=== PATIENT | male | born 1935 | race Caucasian/White ===

== ENCOUNTER → 2017-12-14 | Outpatient (CLI) | payer MEDICARE ==
--- NOTE | 2017-12-14 15:46 | XR ---
EXAMINATION TYPE: XR foot complete LT DATE OF EXAM: 12/14/2017 COMPARISON: NONE HISTORY: Pain TECHNIQUE: Three views are submitted. FINDINGS: The osseous structures are intact. There is no acute fracture or dislocation. Joint spaces are p reserved. Atherosclerotic change of the vasculature. Diffuse soft tissue edema. No destructive change s. Arthropathy of the first MTP and DIP joint surgical clips overlying the distal tibia on the latera l view. IMPRESSION: 1. Diffuse soft tissue edema.
== END | disposition home or self-care (01) ==
LOC: RADXRYALE 15:09
PROVIDERS: ATTEND Family Medicine
DX: R60.0 Localized edema (principal)

== ENCOUNTER → 2019-02-03 | Outpatient (CLI) | payer MEDICARE ==
--- NOTE | 2019-02-08 09:42 | P.ARTDOP ---
Arterial Doppler LOWER EXTREMITY ARTERIAL DOPPLER: DATE OF SERVICE: 02/03/2019 Reason for study: Status post bypass. Doppler waveforms: Multiphasic bilaterally throughout. Pulse volume recording: []. Pressure gradients: None. Ankle-brachial indices: Greater than 1 bilaterally. Toe pressures: [] on the right, [] on the left Impression: Normal study.
== END | disposition home or self-care (01) ==
LOC: RADUSWWP 09:33
PROVIDERS: ATTEND Family Medicine
DX: R60.0 Localized edema (principal); M25.572 Pain in left ankle and joints of left foot; I70.8 Atherosclerosis of other arteries
CPT/HCPCS: 93922

== ENCOUNTER 2019-02-27 11:09 | Inpatient (IN) | payer MEDICARE ==
[2019-02-27] MEDS ORDERED: ONDANSETRON 4 MG/2 ML VIAL IVP STA (11:33)
--- NOTE | 2019-02-27 11:33 | ED ---
General Adult HPI - General Chief complaint: Upper Respiratory Infection Stated complaint: cough Time Seen by Provider: 02/27/19 11:17 Source: patient, RN notes reviewed Mode of arrival: EMS Limitations: no limitations - History of Present Illness Initial comments: patient is a pleasant 83-year-old male presenting to the emergency Department with complaints of cough. Symptoms have been occurring for the past few days. 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 Patient states cough is occasionally somewhat productive. Patient does feel slightly short of breath. No chest pain. Patient has been more fatigued, no isolated area of weakness. No confusion. No leg pain or leg swelling. No fevers. - Related Data Home Medications Medication Instructions Recorded Confirmed Aspirin 81 mg PO DAILY 03/07/15 02/27/19 Atenolol 25 mg PO DAILY 03/07/15 02/27/19 Simvastatin [Zocor] 20 mg PO HS 03/07/15 02/27/19 Ascorbic Acid [Vitamin C] 500 mg PO DAILY 02/27/19 02/27/19 Niacin 500 mg PO DAILY 02/27/19 02/27/19 [place]-3 Fatty Acids/Fish Oil [Fish 1 cap PO DAILY 02/27/19 02/27/19 Oil 1,000 mg Softgel] Allergies Allergy/AdvReac Type Severity Reaction Status Date / Time No Known Allergies Allergy Verified 02/27/19 12:05 Review of Systems ROS Statement: Those systems with pertinent positive or pertinent negative responses have been documented in the HPI. ROS Other: All systems not noted in ROS Statement are negative. Constitutional: Denies: fever, chills Eyes: Denies: eye pain ENT: Denies: ear pain Respiratory: Reports: as per HPI, cough Cardiovascular: Denies: chest pain, palpitations Endocrine: Denies: fatigue Gastrointestinal: Denies: nausea, vomiting Genitourinary: Denies: dysuria Musculoskeletal: Denies: back pain Skin: Denies: rash Neurological: Denies: weakness Past Medical History Past Medical History: Coronary Artery Disease (CAD), Hyperlipidemia, Hypertension History of Any Multi-Drug Resistant Organisms: None Reported Past Surgical History: Cholecystectomy, Coronary Bypass/CABG Past Psychological History: No Psychological Hx Reported Smoking Status: Never smoker Past Alcohol Use History: None Reported Past Drug Use History: None Reported General Exam Limitations: no limitations General appearance: alert, in no apparent distress Head exam: Present: normocephalic Eye exam: Present: normal appearance, PERRL ENT exam: Present: normal oropharynx Neck exam: Present: normal inspection Respiratory exam: Present: normal lung sounds bilaterally. Absent: respiratory distress, wheezes, rales, rhonchi, decreased breath sounds Cardiovascular Exam: Present: regular rate, normal rhythm GI/Abdominal exam: Present: soft. Absent: distended, tenderness, guarding, rebound, rigid Extremities exam: Present: normal inspection. Absent: pedal edema, calf tenderness Neurological exam: Present: alert Psychiatric exam: Present: normal affect, normal mood Skin exam: Present: normal color Course Vital Signs 02/27/19 02/27/19 02/27/19 11:21 11:30 12:15 Temperature 98.4 F 98.0 F Pulse Rate 82 67 Respiratory 20 18 Rate Blood Pressure 147/96 140/79 O2 Sat by Pulse 91 L 91 L Oximetry 02/27/19 02/27/19 13:00 13:40 Temperature 98.6 F Pulse Rate 63 87 Respiratory 18 23 Rate Blood Pressure 116/65 111/75 O2 Sat by Pulse 98 90 L Oximetry EKG Findings - EKG Comments: EKG Findings:: Normal sinus rhythm at 68. NM 198. QRS 98. QT 400. QTc 425. Left axis. Incomplete right bundle-branch block. Inferior Q waves. No acute ST change. Medical Decision Making - Medical Decision Making patient reevaluated and updated.Patient feeling well lying in bed however family states patient has been very fatigued and had difficulty walking. Patient is able to get up and walk around the emergency department however afterwards is very fatigued and felt short of breath. Case was discussed in detail with Dr. Woodward who will admit. He does recommend azithromycin for possible clinical pneumonia. - Lab Data Result diagrams: 02/27/19 11:25 02/27/19 11:25 Lab Results 02/27/19 02/27/19 02/27/19 Range/Units 11:25 11:25 11:25 WBC 8.4 (3.8-10.6) k/uL RBC 5.13 (4.30-5.90) m/uL Hgb 15.9 (13.0-17.5) gm/dL Hct 47.9 (39.0-53.0) % MCV 93.5 (80.0-100.0) fL MCH 31.1 (25.0-35.0) pg MCHC 33.2 (31.0-37.0) g/dL RDW 12.8 (11.5-15.5) % Plt Count 226 (150-450) k/uL Neutrophils % 75 % Lymphocytes % 16 % Monocytes % 6 % Eosinophils % 0 % Basophils % 0 % Neutrophils # 6.3 (1.3-7.7) k/uL Lymphocytes # 1.3 (1.0-4.8) k/uL Monocytes # 0.5 (0-1.0) k/uL Eosinophils # 0.0 (0-0.7) k/uL Basophils # 0.0 (0-0.2) k/uL PT (9.0-12.0) sec INR (<1.2) APTT (22.0-30.0) sec D-Dimer (<0.60) mg/L FEU Sodium 140 (137-145) mmol/L Potassium 4.5 (3.5-5.1) mmol/L Chloride 107 (98-107) mmol/L Carbon Dioxide 23 (22-30) mmol/L Anion Gap 10 mmol/L BUN 10 (9-20) mg/dL Creatinine 0.90 (0.66-1.25) mg/dL Est GFR (CKD-EPI)AfAm >90 (>60 ml/min/1.73 sqM) Est GFR (CKD-EPI)NonAf 79 (>60 ml/min/1.73 sqM) Glucose 128 H (74-99) mg/dL Calcium 10.0 (8.4-10.2) mg/dL Total Bilirubin 1.8 H (0.2-1.3) mg/dL AST 37 (17-59) U/L ALT 28 (4-49) U/L Alkaline Phosphatase 89 (38-126) U/L Creatine Kinase 32 L (55-170) U/L Troponin I (0.000-0.034) ng/mL NT-Pro-B Natriuret Pep 59 pg/mL Total Protein 7.4 (6.3-8.2) g/dL Albumin 4.4 (3.5-5.0) g/dL 02/27/19 02/27/19 Range/Units 11:25 11:25 WBC (3.8-10.6) k/uL RBC (4.30-5.90) m/uL Hgb (13.0-17.5) gm/dL Hct (39.0-53.0) % MCV (80.0-100.0) fL MCH (25.0-35.0) pg MCHC (31.0-37.0) g/dL RDW (11.5-15.5) % Plt Count (150-450) k/uL Neutrophils % % Lymphocytes % % Monocytes % % Eosinophils % % Basophils % % Neutrophils # (1.3-7.7) k/uL Lymphocytes # (1.0-4.8) k/uL Monocytes # (0-1.0) k/uL Eosinophils # (0-0.7) k/uL Basophils # (0-0.2) k/uL PT 10.2 (9.0-12.0) sec INR 0.9 (<1.2) APTT 22.9 (22.0-30.0) sec D-Dimer 0.43 (<0.60) mg/L FEU Sodium (137-145) mmol/L Potassium (3.5-5.1) mmol/L Chloride (98-107) mmol/L Carbon Dioxide (22-30) mmol/L Anion Gap mmol/L BUN (9-20) mg/dL Creatinine (0.66-1.25) mg/dL Est GFR (CKD-EPI)AfAm (>60 ml/min/1.73 sqM) Est GFR (CKD-EPI)NonAf (>60 ml/min/1.73 sqM) Glucose (74-99) mg/dL Calcium (8.4-10.2) mg/dL Total Bilirubin (0.2-1.3) mg/dL AST (17-59) U/L ALT (4-49) U/L Alkaline Phosphatase (38-126) U/L Creatine Kinase (55-170) U/L Troponin I <0.012 (0.000-0.034) ng/mL NT-Pro-B Natriuret Pep pg/mL Total Protein (6.3-8.2) g/dL Albumin (3.5-5.0) g/dL - Radiology Data Radiology results: image reviewed (Chest x-ray shows some pulmonary venous en gorgement without failure. Abdominal x-ray shows no acute process) Disposition Clinical Impression: Dyspnea Disposition: ADMITTED IP TO THIS HOSP Is patient prescribed a controlled substance at d/c from ED?: No Referrals: [facility],Clinic [REFERRING] - 1-2 days Decision Time: 14:17
--- NOTE | 2019-02-27 12:09 | XR ---
EXAMINATION TYPE: XR chest 2V DATE OF EXAM: 02/27/2019 COMPARISON: NONE HISTORY: Shortness of breath TECHNIQUE: Frontal and lateral views of the chest are obtained. FINDINGS: Scattered senescent parenchymal changes noted. Hyperinflation compatible with COPD. No evidence for infiltrate. No evidence for atelectasis. Small fixed hiatal hernia noted. Heart size is stable. Pulmonary venous engorgement without overt failure. Mediastinal structures are stable and grossly unremarkable. No evidence for hilar prominence. Degenerative changes dorsal spine. IMPRESSION: 1. Pulmonary venous engorgement without overt failure.
[2019-02-27 12:11] LABS: Basophils % (A) 0 %; Eosinophils % (A) 0 %; HCT 47.9 % (39.0-53.0); HGB 15.9 gm/dL (13.0-17.5); Lymphocytes # (A) 1.3 k/uL (1.0-4.8); Lymphocytes % (A) 16 %; MCH 31.1 pg (25.0-35.0); MCHC 33.2 g/dL (31.0-37.0); MCV 93.5 fL (80.0-100.0); Mean Platelet Volume 7.2; Monocytes # (A) 0.5 k/uL (0-1.0); Monocytes % (A) 6 %; Neutrophils # (A) 6.3 k/uL (1.3-7.7); Neutrophils % (A) 75 %; Platelet Count 226 k/uL (150-450); RBC 5.13 m/uL (4.30-5.90); RDW 12.8 % (11.5-15.5); WBC 8.4 k/uL (3.8-10.6)
--- NOTE | 2019-02-27 12:12 | XR ---
EXAMINATION TYPE: XR abdomen 1V DATE OF EXAM: 02/27/2019 12:00 PM CLINICAL HISTORY: Nausea TECHNIQUE: Single supine KUB image of the abdomen is obtained. COMPARISON: None. FINDINGS: No dilated large or small bowel. Small vessel small vessel atherosclerosis is seen in the l eft hemipelvis. Cholecystectomy clips are noted. Presumed overlying leads in the right abdomen. No adams spicious calcifications in the abdomen or pelvis. Lung bases are grossly well aerated. IMPRESSION: Nonobstructive bowel gas pattern.
[2019-02-27 12:15] LABS: ALT 28 U/L (4-49); AST 37 U/L (17-59); African American GFR (CKD) >90 (>60 ml/min/1.73 sqM); Albumin 4.4 g/dL (3.5-5.0); Alkaline Phosphatase 89 U/L (38-126); Anion Gap 10 mmol/L; Blood Urea Nitrogen 10 mg/dL (9-20); Carbon Dioxide 23 mmol/L (22-30); Chloride 107 mmol/L (98-107); Creatine Kinase 32 U/L (55-170); Glucose 128 mg/dL (74-99); Non-African American GFR(CKD) 79 (>60 ml/min/1.73 sqM); Potassium 4.5 mmol/L (3.5-5.1); Sodium 140 mmol/L (137-145); Total Bilirubin 1.8 mg/dL (0.2-1.3); Total Protein 7.4 g/dL (6.3-8.2)
[2019-02-27 12:20] LABS: D-Dimer 0.43 mg/L FEU (<0.60); INR 0.9 (<1.2); Partial Thromboplastin Time 22.9 sec (22.0-30.0); Prothrombin Time 10.2 sec (9.0-12.0)
[2019-02-27] MEDS ORDERED: AZITHROMYCIN 500 MG in SODIUM CHLORIDE 0.9% 250 ML IVPB STA (14:17)
[2019-02-27] MEDS ORDERED: PNEUMONIA PROTOCOL UTILIZED 1 EACH MISC PO PRN (14:17)
[2019-02-27] MEDS ORDERED: IPRATROPIUM-ALBUTEROL 3 ML NEB INHALATION PRN (14:17)
[2019-02-27] MEDS: SODIUM CHLORIDE 0.9% 1,000 ML IV SCH (15:06)
[2019-02-27] MEDS: IPRATROPIUM-ALBUTEROL 3 ML NEB INHALATION SCH ×2 (16:02→19:39)
[2019-02-27] MEDS ORDERED: ACETAMINOPHEN TAB 500 MG TAB PO PRN (18:42)
[2019-02-27] MEDS ORDERED: ALPRAZolam 0.25 MG TAB PO PRN (18:42)
[2019-02-27] MEDS ORDERED: HYDROcodone/APAP 5-325MG 1 EACH TAB PO PRN (18:42)
[2019-02-27] MEDS ORDERED: methylPREDNISolone SOD SUCCI 125 MG/2 ML VIAL IV SCH (18:45)
[2019-02-27] MEDS: PANTOPRAZOLE 40 MG/10 ML VIAL IVP SCH (20:42)
[2019-02-27] MEDS: ATORVASTATIN 10 MG TAB PO SCH (20:42)
[2019-02-27] MEDS: HEPARIN SODIUM,PORCINE 5,000 UNIT/ML 1 ML VIAL SQ SCH (20:42)
--- NOTE | 2019-02-27 21:35 | HP ---
HISTORY AND PHYSICAL DATE OF SERVICE: 02/27/2019. CHIEF COMPLAINT: Shortness of breath, cough and as well as nausea, feeling sick. HISTORY OF PRESENT ILLNESS: This 83-year-old gentleman with a past medical history of multiple medical problems including CAD history, hypertension, hyperlipidemia, myocardial infarction, history of dean's lung, history of DJD, history of CAD/CABG being followed by Dr. Espinoza in the [facility] in the outpatient setting was not feeling well over the past several days. Patient complains of cough. The patient was getting mucopurulent sputum. The patient also had some nausea, unable to eat and patient also had some shortness of breath. The patient came to [facility] with the above-mentioned complaints, admitted for further evaluation and treatment. Initial evaluation showed normal CBC and the bilirubin elevated 1.8. The flu is negative. The patient appears to be extremely sick at this time. D-dimer is also negative. A chest x-ray was done which I reviewed personally showed some increased bronchovascular markings might indicate early pneumonia. Patient admitted for further evaluation and treatment. NT pro BNP is only 59. There is no history of any fever, rigors, or chills. No history of headache, loss of consciousness, seizures. PAST MEDICAL HISTORY: History of CAD, hypertension, hyperlipidemia, myocardial infarction, history of CAD/CABG. MEDICATIONS: Home medications are: 1. [place]-3 fatty acids 1 p.o. daily. 2. Niacin 500 mg p.o. daily. 3. Vitamin C 500 mg p.o. daily. 4. Zocor 20 mg q.h.s. 5. Atenolol 25 mg daily. 6. Aspirin 81 mg daily. ALLERGIES: None. FAMILY HISTORY: History of dementia. Father committed suicide. SOCIAL HISTORY: No history of smoking. No history of alcohol intake. REVIEW OF SYSTEMS: ENT diminished vision. Diminished hearing. CARDIOVASCULAR: No angina or palpitations. RESPIRATION: As mentioned earlier. GASTROINTESTINAL: As mentioned earlier. no dysuria. NERVOUS SYSTEM: No numbness. No focal weakness. ALLERGY/IMMUNOLOGY no asthma or hayfever. MUSCULOSKELETAL as mentioned earlier. HEMATOLOGY/ONCOLOGY: No history of anemia. ENDOCRINE: No history of diabetes or hypothyroidism. CONSTITUTIONAL: As mentioned earlier. DERMATOLOGY: Negative. RHEUMATOLOGY negative. PSYCHIATRY as mentioned earlier. PHYSICAL EXAMINATION: Alert and oriented x3. Pulse 72. Blood pressure 150/76, respiration 18, temperature 97.7, pulse ox 93 percent on room air. HEENT: Conjunctivae normal. Oral mucosa moist. NECK is no jugular venous distention. No carotid bruit. No lymph node enlargement. CARDIOVASCULAR system: S1, S2 muffled. No S3, no S4. RESPIRATORY: Breath sounds diminished in the bases. A few scattered rhonchi and basal crackles also heard. Expiratory wheezing also heard. ABDOMEN: Soft, nontender. No mass palpable. LEGS: No edema. No swelling. NERVOUS SYSTEM: Higher functions as mentioned earlier. Moves all 4 limbs. No focal motor or sensory deficits. LYMPHATICS: No lymph nodes palpable in the neck, axillae or groin. JOINTS: No active deforming arthropathy. LABS: CBC within normal limits. Glucose 128, total bilirubin is 1.8. ASSESSMENT: 1. Possible bibasilar pneumonia or bronchopneumonia with early sepsis. 2. History of coronary artery disease, coronary artery bypass grafting. 3. Possible acute gastritis. 4. Hypertension. 5. Hyperlipidemia. 6. Myocardial infarction. 7. History of dean's lung. 8. History of cardiac catheterization. 9. NO CODE, NO CPR AND NO VENT. RECOMMENDATIONS AND DISCUSSION: In this 83-year-old gentleman with a past medical history of multiple medical problems, was admitted with significant respiratory illness and feeling sick at this time. Chest x-ray showed some opacities. I would recommend the patient be treated on broad- spectrum IV antibiotics with presumptive diagnosis of pneumonia. We will obtain the cultures. Otherwise, I would also recommend bronchodilators at this time and resume the home medications. Other than that, the blood cultures also will be obtained. The patient possibly has early signs of sepsis because of the extent of the patient's sickness even though the lab values please note reflect the seriousness of the disease. Discussed with the patient who understands and agrees. Further recommendations to follow. A copy of this dictation being forwarded to Dr. Espinoza who is the primary physician. See orders for details. Medication reconciliation has been done. MMODL / JOSE ELIASN: [id number] /
[2019-02-28 05:30] LABS: Appearance,Urine Clear (Clear); Bilirubin,Urine Negative (Negative); Blood,Urine Negative (Negative); Color,Urine Yellow; Glucose,Urine (UA) Negative (Negative); Ketones,Urine Trace (Negative); Leukocyte Esterase,Urine Negative (Negative); Nitrite,Urine Negative (Negative); PH, Urine 5.5 (5.0-8.0); Protein,Urine Negative (Negative); Specific Gravity,Urine 1.016 (1.001-1.035); Urobilinogen,Urine <2.0 mg/dL (<2.0)
[2019-02-28] MEDS: IPRATROPIUM-ALBUTEROL 3 ML NEB INHALATION SCH ×4 (07:29→19:09)
[2019-02-28 08:34] LABS: Basophils % (A) 0 %; Eosinophils # (A) 0.1 k/uL (0-0.7); Eosinophils % (A) 1 %; HCT 45.6 % (39.0-53.0); HGB 15.3 gm/dL (13.0-17.5); Lymphocytes % (A) 25 %; MCH 31.8 pg (25.0-35.0); MCHC 33.5 g/dL (31.0-37.0); MCV 95.2 fL (80.0-100.0); Monocytes # (A) 0.5 k/uL (0-1.0); Monocytes % (A) 6 %; Neutrophils # (A) 5.2 k/uL (1.3-7.7); Neutrophils % (A) 65 %; Platelet Count 234 k/uL (150-450); RDW 12.9 % (11.5-15.5)
[2019-02-28] MEDS: HEPARIN SODIUM,PORCINE 5,000 UNIT/ML 1 ML VIAL SQ SCH ×2 (08:34→22:14)
[2019-02-28] MEDS: ASPIRIN 81 MG PO SCH (08:36)
[2019-02-28] MEDS: AZITHROMYCIN 500 MG TAB PO SCH (08:36)
[2019-02-28] MEDS: ASCORBIC ACID 500 MG TAB PO SCH (08:36)
[2019-02-28] MEDS: ATENOLOL 25 MG TAB PO SCH (08:36)
[2019-02-28] MEDS: PANTOPRAZOLE 40 MG/10 ML VIAL IVP SCH (08:36)
[2019-02-28] MEDS: NIACIN TR 500 MG CAPLET PO SCH (08:37)
--- NOTE | 2019-02-28 08:41 | XR ---
EXAMINATION TYPE: XR chest 2V DATE OF EXAM: 02/28/2019 COMPARISON: 02/27/2019 HISTORY: Pneumonia. Follow-up exam. TECHNIQUE: Frontal and lateral views of the chest are obtained. FINDINGS: There is an improved retrocardiac opacity with air bronchograms. This appears faint on tod ay's exam. Remainder the lungs are well aerated with chronic interstitial prominence. Cardia mediasti nal silhouette is stable with post CABG change. Diffuse osseous demineralization is noted. IMPRESSION: Improved left basilar retrocardiac opacity.
[2019-02-28 08:49] LABS: Calcium 9.9 mg/dL (8.4-10.2); Potassium 4.2 mmol/L (3.5-5.1)
[2019-02-28] MEDS ORDERED: NON FORMULARY DRUG (Omega-3 Fatty Acids/Fish Oil [Fish Oil 1,000 Mg Softgel] 1 CAP) PO SCH (09:00)
--- NOTE | 2019-02-28 10:04 | P.CNPUL ---
History of Present Illness Consult date: 02/28/19 Reason for consult: dyspnea History of present illness: 3-year-old male patient with known history of Selby's lung, coronary artery disease and bypass was done more than 10 years ago, a nonsmoker, who started developing a respiratory illness approximately 3 days ago where he was having increased cough and congestion and he was having some chills. No documented fever. He came into the hospital where he was diagnosed having a retrocardiac p ulmonary infiltrates/pneumonia and he was started on antibiotics. He is already feeling better. Less short of breath. He is on room air oxygen. No hemoptysis. No pleurisy. No swelling lower extremities. No altered mentation. The influenza screen was negative. White cell count is nonelevated. Rest of the blood work is all within normal limits. Total bilirubin was 1.8. The rest of the LFTs were all within normal limits. He was started on a combination of Rocephin and Zithromax. Review of Systems Constitutional: Reports chills Eyes: denies as per HPI, denies blurred vision, denies bulging eye, denies decreased vision, denies diplopia, denies discharge, denies dry eye, denies irritation, denies itching, denies pain, denies photophobia, denies loss of peripheral vision, denies loss of vision, denies tunnel vision/blind spots Ears: bilateral: decreased hearing, deny: ear discharge, earache, tinnitus Ears, nose, mouth and throat: Reports as per HPI Respiratory: Reports cough, Reports dyspnea, Reports excessive sputum Gastrointestinal: Reports as per HPI Genitourinary: Reports as per HPI Musculoskeletal: Reports as per HPI Musculoskeletal: absent: ankle pain, ankle stiffness, ankle swelling Integumentary: Reports as per HPI Neurological: Reports as per HPI Psychiatric: Reports anxiety attacks Endocrine: Reports as per HPI Hematologic/Lymphatic: Reports as per HPI Allergic/Immunologic: Reports as per HPI Past Medical History Past Medical History: Coronary Artery Disease (CAD), Hyperlipidemia, Hypertension, Myocardial Infarction (AR) Additional Past Medical History / Comment(s): "Selby's lung", coronary artery disease with previous bypass surgery, head injury one year ago and still gets occasional headaches, low back pain/R hip pain/limited ROM, L knee injury and it will buckle so pt wears a knee brace, recent bilateral pedal edema-pt had recent ultrasound but has not gotten the results plus edema went away, Last Myocardial Infarction Date:: 2001 History of Any Multi-Drug Resistant Organisms: None Reported Past Surgical History: Cholecystectomy, Coronary Bypass/CABG, Heart Catheterization Additional Past Surgical History / Comment(s): 2001 CABG 4 vessel, R leg/foot clips removed, lumbar epidural injections, LP Additional Past Anesthesia/Blood Transfusion Reaction / Comment(s): Pt gets "loopy" with anesthesia and has had longer hospital stays d/t this. Smoking Status: Never smoker - Past Family History Father History Unknown: Yes Additional Family Medical History / Comment(s): Father commited suicide. Mother Family Medical History: Dementia Medications and Allergies Home Medications Medication Instructions Recorded Confirmed Type Aspirin 81 mg PO DAILY 03/07/15 02/27/19 History Atenolol 25 mg PO DAILY 03/07/15 02/27/19 History Simvastatin [Zocor] 20 mg PO HS 03/07/15 02/27/19 History Ascorbic Acid [Vitamin C] 500 mg PO DAILY 02/27/19 02/27/19 History Niacin 500 mg PO DAILY 02/27/19 02/27/19 History [place]-3 Fatty Acids/Fish Oil [Fish 1 cap PO DAILY 02/27/19 02/27/19 History Oil 1,000 mg Softgel] Allergies Allergy/AdvReac Type Severity Reaction Status Date / Time No Known Allergies Allergy Verified 02/27/19 12:05 Physical Exam Vitals: Vital Signs Temp Pulse Pulse Resp BP BP BP 02/28/19 07:40 84 02/28/19 07:31 80 02/28/19 06:25 65 105/57 110/65 02/28/19 05:36 97.8 F 64 17 87/49 02/27/19 21:58 97.9 F 109 H 17 101/59 02/27/19 19:49 82 02/27/19 19:39 84 02/27/19 16:14 80 02/27/19 16:02 82 02/27/19 15:23 97.9 F 72 18 150/77 02/27/19 15:12 98.2 F 73 15 126/74 02/27/19 15:00 98.2 F 73 18 126/74 02/27/19 14:00 98.2 F 63 19 124/74 02/27/19 13:40 87 23 111/75 02/27/19 13:00 98.6 F 63 18 116/65 02/27/19 12:15 98.0 F 67 140/79 02/27/19 11:30 18 02/27/19 11:21 98.4 F 82 20 147/96 Pulse Ox 02/28/19 07:40 02/28/19 07:31 02/28/19 06:25 02/28/19 05:36 92 L 02/27/19 21:58 92 L 02/27/19 19:49 02/27/19 19:39 02/27/19 16:14 02/27/19 16:02 95 02/27/19 15:23 93 L 02/27/19 15:12 02/27/19 15:00 94 L 02/27/19 14:00 93 L 02/27/19 13:40 90 L 02/27/19 13:00 98 02/27/19 12:15 91 L 02/27/19 11:30 02/27/19 11:21 91 L Intake and Output 02/27/19 02/28/19 02/28/19 22:59 06:59 14:59 Intake Total 100 Output Total 400 400 Balance -300 -400 Intake: Amount of Fluid Infused ( 100 ml) Output: Urine 400 400 Other: Voiding Method Toilet Toilet Weight 81.647 kg he patient appeared well nourished and normally developed. Vital signs as documented. Head exam is unremarkable. No scleral icterus or corneal arcus noted. Neck is without jugular venous distension, thyromegaly, or carotid bruits. Carotid upstrokes are brisk bilaterally. Lungs are clear to auscultation and percussion, few crackles in lung bases bilaterally and the patient has a t horacotomy scar over the anterior chest which is dry clean and intact.. Cardiac exam reveals the PMI to be normally sized and situated. Rhythm is regular. First and second heart sounds normal. No murmurs, rubs or gallops. Abdominal exam reveals normal bowel sounds, no masses, no organomegaly and no aortic enlargement. Extremities are nonedematous and both femoral and pedal pulses are normal. Results - Laboratory Findings CBC and BMP: 02/28/19 07:53 02/28/19 07:53 PT/INR, D-dimer PT 10.2 sec (9.0-12.0) 02/27/19 11:25 INR 0.9 (<1.2) 02/27/19 11:25 D-Dimer 0.43 mg/L FEU (<0.60) 02/27/19 11:25 Abnormal lab findings: Abnormal Labs 02/27/19 02/28/19 02/28/19 11:25 05:18 07:53 Glucose 128 H 107 H Total Bilirubin 1.8 H Creatine Kinase 32 L Urine Ketones Trace H - Diagnostic Findings Chest x-ray: image reviewed Assessment and Plan Plan: 1 left lower lobe pneumonia, retrocardiac, currently on examination of Rocephin and Zithromax. This is a community acquired pneumonia. Hemodynamically stable. No significant hypoxemia. No altered mentation. Blood work is within normal limits 2 Selby's lung/fibrosis involving the lung bases 3 coronary artery disease with previous bypass surgery that was done more than 10 years ago 4 hyperlipidemia Plan Agree on the current antibiotic coverage. Switch this patient oral antibiotics in the next 24 hours. Chest x-rays improved. No signs of any respiratory insufficiency at this point in time. Cultures are pending. The blood work is within normal limits. Simple community-acquired pneumonia and the patient should be able to get discharged the next 24 hours.
[2019-02-28] MEDS: SODIUM CHLORIDE 0.9% 1,000 ML IV SCH (15:13)
--- NOTE | 2019-02-28 16:46 | PN ---
PROGRESS NOTE DATE OF SERVICE: 02/28/2019 This 83-year-old gentleman admitted with cough, congestion, shortness of breath as well as some chills had possibly bibasilar pneumonia, left more than the right, with possibly community-acquired pneumonia with early sepsis. The patient was extremely sick yesterday. The patient was given antibiotics. At present the white count is normal, but the patient clinically has features of early sepsis. Please note the clinical findings rather than the lab findings. Past medical history reviewed. REVIEW OF SYSTEMS: CARDIOVASCULAR SYSTEM: No angina, palpitations. RESPIRATORY SYSTEM: As mentioned earlier. GI: As mentioned earlier. : No dysuria or retention. NERVOUS SYSTEM: No numbness, weakness. CURRENT MEDICATIONS: 1. Tylenol p.r.n. 2. [place] 5 mg q.6 p.r.n. 3. DuoNeb q.i.d. and p.r.n. 4. Xanax 0.25 t.i.d. 5. Vitamin C 500 mg p.o. daily. 6. Aspirin 81 mg p.o. daily. 7. Tenormin 25 mg daily. 8. Lipitor 10 mg at bedtime. 9. Zithromax 500 mg p.o. daily. 10.Omnicef 300 mg p.o. b.i.d. 11.Heparin 5000 units subcutaneously b.i.d. 12.Niacin 500 mg p.o. daily. 13.Protonix 40 mg b.i.d. PHYSICAL EXAMINATION: Patient is alert, oriented x3. Pulse is 77, blood pressure 113/73, respirations 16, temperature 98 degrees, pulse ox 91% on room air. HEENT: Conjunctivae normal. Oral mucosa moist. NECK: No jugular venous distention. No carotid bruit. No lymph node enlargement. CARDIOVASCULAR SYSTEM: S1, S2 muffled. RESPIRATORY SYSTEM: Breath sounds diminished at the bases. Some mild increase in activity. Otherwise, bilateral scattered rhonchi and basal crackles, left more than the right, are present. ABDOMEN: Soft, nontender. LEGS: No edema. No swelling. NERVOUS SYSTEM: Higher functions as mentioned earlier. Moves all 4 limbs. No focal motor or sensory deficit. LYMPHATICS: No lymph node palpable in neck, axillae or groin. SKIN: No ulcer, rash, bleeding. JOINTS: No active deforming arthropathy. LABS: CBC normal. Sodium 143, potassium 4.2. Other labs are noted. ASSESSMENT: 1. Acute bibasilar pneumonia, possibly community-acquired, left more than the right, with early sepsis, present on admission. 2. 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 3. History of coronary artery disease, coronary artery bypass grafting. 4. Possible acute gastritis, present on admission, secondary to sepsis. 5. Hypertension. 6. Hyperlipidemia. 7. Myocardial infarction and history of cardiac catheterization. 8. NO CODE, NO CPR, NO VENT. RECOMMENDATIONS AND DISCUSSION: In this 83-year-old gentleman admitted with multiple complex medical issues, I would recommend to continue the IV antibiotics. As mentioned earlier, the patient was extremely sick yesterday, feeling miserable, having vomiting as well as fever, chills and significant respiratory symptoms. Patient had features of possibly severe pneumonia with features of sepsis, present on admission. I would recommend to continue the antibiotics. The lab values are not reflective of the seriousness and the severity of the patient's illness. I will definitely continue IV antibiotics and close monitoring in the hospital. Further recommendations to follow. MMODL / IJN: [id number] /
[2019-02-28] MEDS: PANTOPRAZOLE 40 MG TABLET PO SCH (16:48)
[2019-02-28] MEDS: ATORVASTATIN 10 MG TAB PO SCH (22:14)
[2019-03-01] MEDS: IPRATROPIUM-ALBUTEROL 3 ML NEB INHALATION SCH ×2 (07:00→10:38)
[2019-03-01] MEDS: PANTOPRAZOLE 40 MG TABLET PO SCH (08:56)
[2019-03-01] MEDS: AZITHROMYCIN 500 MG TAB PO SCH (08:56)
[2019-03-01] MEDS: HEPARIN SODIUM,PORCINE 5,000 UNIT/ML 1 ML VIAL SQ SCH (08:57)
[2019-03-01] MEDS: ATENOLOL 25 MG TAB PO SCH (08:57)
[2019-03-01] MEDS: ASPIRIN 81 MG PO SCH (08:57)
[2019-03-01] MEDS: ASCORBIC ACID 500 MG TAB PO SCH (08:57)
[2019-03-01] MEDS: NIACIN TR 500 MG CAPLET PO SCH (08:58)
[2019-03-01] MEDS ORDERED: CEFDINIR 300 MG CAP PO SCH (09:00)
[2019-03-01 10:01] LABS: Basophils % (A) 1 %; Eosinophils # (A) 0.1 k/uL (0-0.7); Eosinophils % (A) 1 %; HCT 46.2 % (39.0-53.0); HGB 14.7 gm/dL (13.0-17.5); Lymphocytes % (A) 14 %; MCH 30.7 pg (25.0-35.0); MCHC 31.9 g/dL (31.0-37.0); MCV 96.3 fL (80.0-100.0); Mean Platelet Volume 7.3; Monocytes # (A) 0.3 k/uL (0-1.0); Monocytes % (A) 5 %; Neutrophils # (A) 5.3 k/uL (1.3-7.7); Neutrophils % (A) 78 %; Platelet Count 216 k/uL (150-450); RBC 4.79 m/uL (4.30-5.90); RDW 13.2 % (11.5-15.5); WBC 6.8 k/uL (3.8-10.6)
[2019-03-01 10:13] LABS: Calcium 9.8 mg/dL (8.4-10.2); Potassium 4.4 mmol/L (3.5-5.1)
--- NOTE | 2019-03-01 10:35 | P.PN ---
Subjective Progress Note Date: 03/01/19 83-year-old male patient with known history of Selby's lung, coronary artery disease and bypass was done more than 10 years ago, a nonsmoker, who started developing a respiratory illness approximately 3 days ago where he was having increased cough and congestion and he was having some chills. No documented fever. He came into the hospital where he was diagnosed having a retrocardiac pulmonary infiltrates/pneumonia and he was started on antibiotics. He is already feeling better. Less short of breath. He is on room air oxygen. No hemoptysis. No pleurisy. No swelling lower extremities. No altered mentation. The influenza screen was negative. White cell count is nonelevated. Rest of the blood work is all within normal limits. Total bilirubin was 1.8. The rest of the LFTs were all within normal limits. He was started on a combination of Rocephin and Zithromax. On 03/01/2019 the patient is feeling well. No signs of any respiratory distress. No cough sputum production chest tightness or wheezing. No altered mentation. He was given a combination of Rocephin and Zithromax regarding a left lower lobe pneumonia. Objective - Vital Signs Vital signs: Vital Signs Temp 98.0 F 03/01/19 05:00 Pulse 83 03/01/19 05:00 Resp 20 03/01/19 05:00 BP 102/62 03/01/19 05:00 Pulse Ox 91 L 03/01/19 05:00 Intake & Output 02/28/19 03/01/19 03/01/19 18:59 06:59 18:59 Intake Total 540 650 Output Total 600 Balance 540 50 Intake: Oral 540 650 Output: Urine 600 Other: Voiding Method Toilet # Voids 2 1 1 # Bowel Movements 2 - Exam he patient appeared well nourished and normally developed. Vital signs as docu mented. Head exam is unremarkable. No scleral icterus or corneal arcus noted. Neck is without jugular venous distension, thyromegaly, or carotid bruits. Carotid upstrokes are brisk bilaterally. Lungs are clear to auscultation and percussion, few crackles in lung bases bilaterally and the patient has a thoracotomy scar over the anterior chest which is dry clean and intact.. Cardiac exam reveals the PMI to be normally sized and situated. Rhythm is regular. First and second heart sounds normal. No murmurs, rubs or gallops. Abdominal exam reveals normal bowel sounds, no masses, no organomegaly and no aortic enlargement. Extremities are nonedematous and both femoral and pedal pulses are normal. - Labs CBC & Chem 7: 03/01/19 09:14 03/01/19 09:14 Labs: Abnormal Lab Results - Last 24 Hours (Table) 03/01/19 Range/Units 09:14 Glucose 189 H (74-99) mg/dL Microbiology - Last 24 Hours (Table) 02/28/19 11:35 Gram Stain - Preliminary Sputum Sputum Culture - Preliminary 02/27/19 14:46 Blood Culture - Preliminary Blood No Growth after 24 hours Assessment and Plan Plan: 1 left lower lobe pneumonia, retrocardiac, currently on examination of Rocephin and Zithromax. This is a community acquired pneumonia. Hemodynamically stable. No significant hypoxemia. No altered mentation. 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 Discharge the patient home on a combination of Zithromax and Omnicef. Pulse ox is within normal. No signs of any respiratory distress. Pulmonary we'll sign off the case. Rest of the management as per medicine. In my opinion the patient is dischargeable.
[2019-03-01] MEDS: SODIUM CHLORIDE 0.9% 1,000 ML IV SCH (10:57)
[2019-03-01 14:53] VITALS: BP 128/58; PULSE 73; RESP 16; TEMP 97.5
--- NOTE | 2019-03-01 23:44 | DS ---
DISCHARGE SUMMARY DATE OF SERVICE: 03/01/2019. FINAL DIAGNOSES: 1. Acute bibasilar pneumonia, possibly community-acquired, left more than the right with early sepsis, present on admission. 2. 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 3. History of coronary artery disease, coronary artery bypass grafting. 4. Acute gastritis present on admission possibly secondary to sepsis. 5. Hypertension. 6. Hyperlipidemia. 7. History of myocardial infarction. 8. History of cardiac catheterization. 9. NO CODE, NO CPR, NO VENT. DISCHARGE DISPOSITION: The patient will be discharged in stable condition with guarded prognosis. HISTORY OF PRESENT ILLNESS: This 83-year-old gentleman with a past medical history of multiple medical problems was admitted with possible pneumonia as well as sepsis. Clinically, present on admission, patient given IV antibiotics. Patient improved significantly. See orders for details. The patient is extremely keen on going home. The patient being discharged home with the following advice and medications: The urine Legionella is negative. Mycoplasma IgM is only 0.14, which is negative and influenza was also negative. DISCHARGE ADVICE AND MEDICATIONS: 1. Diet is cardiac diet. 2. Activity limited until followup. 3. Follow up with Dr. Espinoza in the [facility] in 2-3 days. DISCHARGE MEDICATIONS: 1. Ecotrin 81 mg p.o. daily. 2. Atenolol 25 mg daily. 3. Gay-3 fatty acids. 4. Niacin 500 mg p.o. daily. 5. Vitamin C 500 mg. 6. Zocor 20 mg q.h.s. 7. Omnicef 300 mg p.o. b.i.d. for 5 days. 8. Protonix 40 mg p.o. daily. 9. Zithromax 500 mg daily for 5 days. Follow up with Dr. Ho as recommended. MMODL / IJN: [id number] /
== END 2019-03-01 14:05 | disposition home or self-care (01) | DRG 871 ==
LOC: EC 11:09 → 6NMEDSUR 14:17 → OBSVTOIN 03-01 08:39
PROVIDERS: ADMIT Hospitalist; ATTEND Hospitalist
DX: A41.9 Sepsis, unspecified organism (principal); J18.9 Pneumonia, unspecified organism; J67.0 Farmer's lung; Z66 Do not resuscitate; I25.10 Atherosclerotic heart disease of native coronary artery without angina pectoris; I10 Essential (primary) hypertension; E78.5 Hyperlipidemia, unspecified; M19.90 Unspecified osteoarthritis, unspecified site; M54.5 Low back pain; M25.551 Pain in right hip; R26.2 Difficulty in walking, not elsewhere classified; K29.00 Acute gastritis without bleeding; I25.2 Old myocardial infarction; Z79.82 Long term (current) use of aspirin; Z79.899 Other long term (current) drug therapy; Z95.1 Presence of aortocoronary bypass graft; Z87.820 Personal history of traumatic brain injury; Z90.49 Acquired absence of other specified parts of digestive tract
CPT/HCPCS: 36415; 71046; 74018; 80048; 80053; 81003; 82550; 83880; 84484; 85025; 85379; 85610; 85730; 86738; 87040; 87070; 87205; 87449; 87502; 93005; 94640; 96374; 99285

== ENCOUNTER → 2019-03-13 | Outpatient (CLI) | payer MEDICARE ==
--- NOTE | 2019-03-13 11:04 | XR ---
EXAMINATION TYPE: XR chest 2V DATE OF EXAM: 03/13/2019 COMPARISON: 02/28/2019 HISTORY: Cough. Follow-up for pneumonia TECHNIQUE: Frontal and lateral views of the chest are obtained. FINDINGS: Pulmonary hyperinflation with flattening of the diaphragms on the lateral view. Resolved ba silar opacity. There is no focal air space opacity, pleural effusion, or pneumothorax seen. There is slight eventration of the right hemidiaphragm. The cardiac silhouette size is within normal limits. P ost CABG changes are seen of the chest. The osseous structures are intact. Mild diffuse osseous alejandro neralization. Mild degenerative change of the spine. Cholecystectomy clips are seen. IMPRESSION: Resolved left basilar opacity. No acute process.
== END | disposition home or self-care (01) ==
LOC: RADXRYALE 10:14
PROVIDERS: ATTEND Physician Assistant Medical
DX: R05 Cough (principal); R06.02 Shortness of breath
CPT/HCPCS: 71046

== ENCOUNTER → 2020-01-29 | Outpatient (CLI) | payer MEDICARE ==
--- NOTE | 2020-01-29 09:55 | US ---
EXAMINATION TYPE: US abdomen complete DATE OF EXAM: 01/29/2020 COMPARISON: 02/24/2011 CLINICAL HISTORY: E80.7 disorder of bilirubin metabolism. gallbladder removed; takes medication for h eart since CABG; renal stones EXAM MEASUREMENTS: Liver Length: 16.2 cm Gallbladder Wall: surgically removed CBD: 0.3 cm Spleen: 10.6 cm Right Kidney: 9.9 x 6.7 x 5.1 cm Left Kidney: 10.7 x 6.7 x 5.3 cm Pancreas: hyperechoic Liver: hyperechoic to right renal cortex suggests fatty liver Gallbladder: surgically absent Evidence for sonographic Torres's sign: no CBD: wnl Spleen: wnl Right Kidney: multiple hyperechoic foci noted in renal sinus periphery with largest focus =0.4 x 0.4 x 0.2cm Left Kidney: multiple small hyperechoic foci noted in lower pole. Upper IVC: wnl Abd Aorta: size is wnl IMPRESSION: 1. Increased echo pattern of liver is nonspecific could be seen with hepatic steatosis or diffuse hep atocellular disease correlate clinically. 2. Post cholecystectomy. 3. Nonobstructing bilateral renal calculi.
== END | disposition home or self-care (01) ==
LOC: RADUSWWP 09:09
PROVIDERS: ATTEND Family Medicine
DX: N20.0 Calculus of kidney (principal); R93.5 Abnormal findings on diagnostic imaging of other abdominal regions, including retroperitoneum; Z90.49 Acquired absence of other specified parts of digestive tract
CPT/HCPCS: 76700

== ENCOUNTER → 2020-11-11 | Outpatient (CLI) | payer MEDICARE ==
--- NOTE | 2020-11-12 08:48 | XR ---
EXAMINATION TYPE: XR chest 2V DATE OF EXAM: 11/11/2020 COMPARISON: 03/13/2019 INDICATION: Cough short of breath TECHNIQUE: Frontal and lateral views of the chest are obtained. FINDINGS: The heart size is normal. The pulmonary vasculature is normal. The lungs are clear. There is hyperinflation flattening the diaphragms compatible with COPD. Sternotomy wires are in the midline. IMPRESSION: 1. No acute pulmonary process. 2. COPD
== END | disposition home or self-care (01) ==
LOC: RADXRYALE 16:02
PROVIDERS: ATTEND Physician Assistant Medical
DX: J44.9 Chronic obstructive pulmonary disease, unspecified (principal)
CPT/HCPCS: 71046

== ENCOUNTER → 2021-01-28 | Outpatient (CLI) | payer MEDICARE ==
--- NOTE | 2021-01-28 09:21 | XR ---
EXAMINATION TYPE: XR lumbosacral spine min 4V DATE OF EXAM: 01/28/2021 CLINICAL HISTORY: Chronic low back pain. TECHNIQUE: Frontal, lateral, and oblique images of the lumbar spine are obtained. COMPARISON: CT abdomen and pelvis January 13, 2011 FINDINGS: There are 5 lumbar type vertebral bodies redemonstrated. Mild to moderate disc space narro wing and moderate anterior spurring T12-L1 level. Mild disc space narrowing and moderate anterior spu rring L1-L2 level There is more prominent dextroconvex scoliosis centered at L2-L3 level. Vertebral b esther heights are maintained. Moderate disc space narrowing with moderate to severe left lateral spurri ng L2-L3 level. Moderate to severe disc space narrowing with mild to moderate lateral spurring L3-L4 level. Moderate disc space narrowing L4-L5 level with mild to moderate anterior and lateral spurring. Moderate to severe disc space narrowing with vacuum disc phenomenon and moderate anterior spurring L 5-S1 level. Oblique images appear within normal limits. Facet arthropathy lower lumbar spine redemons trated. Overlying cholecystectomy clips again seen. IMPRESSION: As above. Interval multilevel degenerative progression from 2011 CT noted.
== END | disposition home or self-care (01) ==
LOC: RADXRYALE 08:39
PROVIDERS: ATTEND Physician Assistant Medical
DX: M51.35 Other intervertebral disc degeneration, thoracolumbar region (principal); M51.37 Other intervertebral disc degeneration, lumbosacral region; M41.86 Other forms of scoliosis, lumbar region
CPT/HCPCS: 72110

== ENCOUNTER → 2021-02-20 | Outpatient (CLI) | payer MEDICARE ==
--- NOTE | 2021-02-20 14:53 | US ---
EXAMINATION TYPE: US carotid duplex BILAT DATE OF EXAM: 02/20/2021 COMPARISON: NONE CLINICAL HISTORY: R42 Dizziness and giddiness G31.84 Mild cognitive. EXAM MEASUREMENTS: RIGHT: Peak Systolic Velocity (PSV) cm/sec ----- Right CCA: 57.0 ----- Right ICA: 59.3 ----- Right ECA: 122.0 ICA/CCA ratio: 1.04 RIGHT: End Diastole cm/sec ----- Right CCA: 14.3 ----- Right ICA: 13.2 ----- Right ECA: 13.6 LEFT: Peak Systolic Velocity (PSV) cm/sec ----- Left CCA: 63.2 ----- Left ICA: 72.5 ----- Left ECA: 85.4 ICA/CCA ratio: 1.15 LEFT: End Diastole cm/sec ----- Left CCA: 16.4 ----- Left ICA: 12.4 ----- Left ECA: 8.3 VERTEBRALS (direction of flow): Right Vertebral: Antegrade Left Vertebral: Antegrade Rhythm: Normal No significant velocity elevations; mild plaque formation seen in the right and left carotid bulbs. IMPRESSION: no hemodynamically significant stenosis Criteria for Assigning % of Stenosis / Diameter reduction (Estimation based on the indirect measurements of the internal carotid artery velocities (ICA PSV). 1. Normal (no stenosis)=ICA PSV < 125 cm/s: ratio < 2.0: ICA EDV<40 cm/s. 2. Less than 50% stenosis=ICA PSV < 125 cm/s: ratio < 2.0: ICA EDV<40 cm/s. 3. 50 to 69% stenosis=ICA PSV of 125 to 230 cm/s: ration 2.0 ? 4.0: ICA EDV 40-100 cm/s. 4. Greater than 70% stenosis to near occlusion= ICA PSV > 230 cm/s: ratio > 4.0: ICA EDV > 100 cm/s. 5. Near occlusion= ICA PSV velocities may be low or undetectable: variable ratio and ICA EDV. 6. Total occlusion=unable to detect flow.
--- NOTE | 2021-02-21 17:34 | CT ---
EXAMINATION TYPE: CT brain wo con DATE OF EXAM: 02/20/2021 COMPARISON: CT brain 03/07/2015 HISTORY: mild cognitive impairment CT DLP: 1030.6 mGycm Automated exposure control for dose reduction was used. Helical imaging through the brain. FINDINGS: There is cortical atrophy present. Periventricular white matter shows patchy low attenuation. There i s no hemorrhage or hydrocephalus. Cerebral vascular calcifications are present. Calvarium is intact. Paranasal sinuses and mastoid air cells are well aerated. IMPRESSION: AGE-RELATED CHANGES OF ATROPHY AND PROBABLE CHRONIC SMALL VESSEL ISCHEMIA
== END | disposition home or self-care (01) ==
LOC: RADCTMAIN 13:44
PROVIDERS: ATTEND Family Medicine
DX: G31.84 Mild cognitive impairment of uncertain or unknown etiology (principal)
CPT/HCPCS: 70450; 93880

== ENCOUNTER → 2021-12-30 | Outpatient (CLI) | payer MEDICARE ==
--- NOTE | 2021-12-30 11:42 | XR ---
EXAMINATION TYPE: XR chest 2V DATE OF EXAM: 12/30/2021 10:29 AM COMPARISON: Chest radiographs from 11/11/2020 TECHNIQUE: XR chest 2V Frontal and lateral views of the chest. CLINICAL INDICATION:Male, 86 years old with history of R0600,R5383,R42,R1032; FINDINGS: Lungs/Pleura: There is flattening of the diaphragm with increased lucency of the lungs. No evidence o f pneumothorax, pleural effusion or focal consolidation. Pulmonary vascularity: Unremarkable. Heart/mediastinum: Cardiomediastinal silhouette is prominent in size. Musculoskeletal: No acute osseous pathology. Midline sternotomy wires are noted. Multilevel disc dege neration changes with increased kyphosis and osteophytes. IMPRESSION: 1. No acute cardiopulmonary disease process. 2. COPD changes.
--- NOTE | 2021-12-30 11:45 | XR ---
EXAMINATION TYPE: XR abdomen 2V DATE OF EXAM: 12/30/2021 10:29 AM INDICATION: Patient age:Male; 86 years old; Reason for study: R0600,R5383,R42,R1032; COMPARISON: 02/27/2019 TECHNIQUE: Two views of the abdomen were obtained. FINDINGS: The bowel gas pattern is nonspecific without dilated loops of small or large bowel. There i s no evidence for organomegaly or pneumoperitoneum. The osseous structures are intact. No abnormal calcifications are present. Fecal material and gas are demonstrated throughout the colon and rectum. Right upper quadrant cholecystectomy clips. Multilevel disc degeneration changes of the spine with mi ld extra scoliosis. Osteophyte formation of the acetabulum bilaterally. IMPRESSION: 1. Nonspecific bowel gas pattern without radiographic evidence for acute process. 2. Degeneration changes of the spine and hips.
== END | disposition home or self-care (01) ==
LOC: RADXRYALE 10:08
PROVIDERS: ATTEND Physician Assistant Medical
DX: J44.9 Chronic obstructive pulmonary disease, unspecified (principal); M16.0 Bilateral primary osteoarthritis of hip; R53.83 Other fatigue
CPT/HCPCS: 71046; 74019

== ENCOUNTER → 2022-02-03 | Outpatient (CLI) | payer MEDICARE ==
--- NOTE | 2022-02-04 09:44 | CA ---
Transthoracic Echo Report Name: Dennis Garay Age: 86 Gender: M : 1935 Exam Date: 02/03/2022 14:23 Exam Location: [place] [facility] Ht (in): 69 Wt (lb): 180 Ordering Physician: Jin Espinoza DO Attending/Referring Phys: Tori Peres PAC Pattern Cleaner Faustina Haro RDCS Procedure CPT: Indications: R91.8 ABNORMAL LUNG FIELD Cardiac Hx: Technical Quality: Good Contrast 1: Total Dose (mL): Contrast 2: Total Dose (mL): MEASUREMENTS (Male / Female) Normal Values 2D ECHO LV Diastolic Diameter PLAX 4.4 cm 4.2 - 5.9 / 3.9 - 5.3 cm LV Systolic Diameter PLAX 2.9 cm IVS Diastolic Thickness 1.2 cm 0.6 - 1.0 / 0.6 - 0.9 cm LVPW Diastolic Thickness 1.1 cm 0.6 - 1.0 / 0.6 - 0.9 cm LV Relative Wall Thickness 0.5 RV Internal Dim ED PLAX 3.8 cm LA Systolic Diameter LX 3.8 cm 3.0 - 4.0 / 2.7 - 3.8 cm LA Volume 51.2 cm??? 18 - 58 / 22 - 52 cm??? M-MODE Aortic Root Diameter MM 3.1 cm MV E Point Septal Separation 0.4 cm AV Cusp Separation MM 2.2 cm DOPPLER AV Peak Velocity 91.6 cm/s AV Peak Gradient 3.4 mmHg AI Peak Velocity 178.0 cm/s AI Peak Gradient 12.7 mmHg AI Pressure Half Time 1011.4 ms MV Area PHT 4.5 cm??? Mitral E Point Velocity 67.5 cm/s Mitral A Point Velocity 70.2 cm/s Mitral E to A Ratio 1.0 MV Deceleration Time 168.3 ms MV E' Velocity 6.4 cm/s Mitral E to MV E' Ratio 10.6 TR Peak Velocity 257.5 cm/s Right Ventricular Systolic Press 35.0 mmHg FINDINGS Left Ventricle Left ventricular ejection fraction is estimated at 60-65 %. Left ventricular cavity size normal. Mildly increased septal wall thickness. Right Ventricle Moderate right ventricular dilatation. Mild pulmonary hypertension. Right Atrium Normal right atrial size. Left Atrium Normal left atrial size. No evidence for an atrial septal defect. Mitral Valve Structurally normal mitral valve. No mitral stenosis, regurgitation or prolapse. Aortic Valve Trileaflet aortic valve. Trace to mild aortic regurgitation. Tricuspid Valve Structurally normal tricuspid valve. Mild tricuspid regurgitation. Pulmonic Valve Trace to mild pulmonic regurgitation. Pericardium Normal pericardium. No pericardial effusion. Aorta Normal size aortic root and proximal ascending aorta. CONCLUSIONS Left ventricular ejection fraction 60-65% RVSP 35 No mitral regurgitation Trace to mild aortic regurgitation Mild tricuspid regurgitation No pericardial effusion Previewed by: Dr. Noah Bower DO (Electronically Signed) Final Date: 04 February 2022 09:43
== END | disposition home or self-care (01) ==
LOC: RADECHMAIN 14:13
PROVIDERS: ATTEND Family Medicine
DX: I08.2 Rheumatic disorders of both aortic and tricuspid valves (principal); I10 Essential (primary) hypertension; I25.10 Atherosclerotic heart disease of native coronary artery without angina pectoris; R42 Dizziness and giddiness; R06.00 Dyspnea, unspecified; R53.83 Other fatigue
CPT/HCPCS: 93306

== ENCOUNTER 2022-08-30 13:53 | Inpatient (IN) | payer MEDICARE ==
[2022-08-30 14:23] LABS: Basophils % (A) 1 %; Eosinophils # (A) 0.2 k/uL (0-0.7); Eosinophils % (A) 3 %; HGB 15.7 gm/dL (13.0-17.5); Lymphocytes # (A) 1.9 k/uL (1.0-4.8); Lymphocytes % (A) 24 %; MCH 31.5 pg (25.0-35.0); MCHC 33.4 g/dL (31.0-37.0); MCV 94.3 fL (80.0-100.0); Mean Platelet Volume 7.4; Monocytes # (A) 0.6 k/uL (0-1.0); Monocytes % (A) 7 %; Neutrophils # (A) 5.2 k/uL (1.3-7.7); Neutrophils % (A) 64 %; Platelet Count 180 k/uL (150-450); RBC 4.99 m/uL (4.30-5.90); RDW 12.5 % (11.5-15.5); WBC 8.1 k/uL (3.8-10.6)
[2022-08-30 14:32] LABS: Partial Thromboplastin Time 23.7 sec (22.0-30.0); Prothrombin Time 10.4 sec (9.0-12.0)
--- NOTE | 2022-08-30 14:40 | ED ---
Chest Pain HPI - General Chief Complaint: Chest Pain Stated Complaint: Chest pressure Time Seen by Provider: 08/30/22 14:00 Source: patient, EMS Mode of arrival: EMS Limitations: no limitations - History of Present Illness Initial Comments: 87-year-old male past medical history of coronary artery bypass who presents to the emergency department reporting chest pain and shortness of breath. Patient ate lunch and went for a walk. It was after his walk that he developed significant chest pain. states that he was clutching his chest. Because of his big cardiac history she immediately called EMS. EMS picked the patient up and he did not have any complaints. Patient arrives to [place] and cannot provide any history. The denies that he has been recently sick. No fevers, chills or cough. No calf pain or swelling. No nausea or vomiting. No other alleviating, precipitating modifying factors - Related Data Home Medications Medication Instructions Recorded Confirmed Ascorbic Acid [Vitamin C] 500 mg PO DAILY 02/27/19 08/30/22 L.acidoph,Paracasei, B.lactis 1 cap PO DAILY 08/30/22 08/30/22 [Probiotic] Rosuvastatin Calcium [Crestor] 40 mg PO DAILY 08/30/22 08/30/22 Previous Rx's Medication Instructions Recorded Aspirin 81 mg PO DAILY #90 tab 09/02/22 Ezetimibe [Zetia] 10 mg PO DAILY #90 tab 09/02/22 Isosorbide Mononitrate ER [Imdur] 30 mg PO DAILY #90 tab 09/02/22 Metoprolol Tartrate [Lopressor] 25 mg PO BID #90 tab 09/02/22 Allergies Allergy/AdvReac Type Severity Reaction Status Date / Time No Known Allergies Allergy Verified 08/30/22 16:24 Review of Systems ROS Statement: Those systems with pertinent positive or pertinent negative responses have been documented in the HPI. ROS Other: All systems not noted in ROS Statement are negative. Past Medical History Past Medical History: Coronary Artery Disease (CAD), Hyperlipidemia, Hypertension, Myocardial Infarction (HI) Additional Past Medical History / Comment(s): "Selby's lung", coronary artery disease with previous bypass surgery, head injury one year ago and still gets occasional headaches, low back pain/R hip pain/limited ROM, L knee injury and it will buckle so pt wears a knee brace, recent bilateral pedal edema-pt had recent ultrasound but has not gotten the results plus edema went away, Last Myocardial Infarction Date:: 2001 History of Any Multi-Drug Resistant Organisms: None Reported Past Surgical History: Cholecystectomy, Coronary Bypass/CABG, Heart Catheterization Additional Past Surgical History / Comment(s): 2001 CABG 4 vessel, R leg/foot clips removed, lumbar epidural injections, LP Additional Past Anesthesia/Blood Transfusion Reaction / Comment(s): Pt gets "loopy" with anesthesia and has had longer hospital stays d/t this. Past Psychological History: No Psychological Hx Reported Past Alcohol Use History: None Reported Past Drug Use History: None Reported - Past Family History Father History Unknown: Yes Additional Family Medical History / Comment(s): Father commited suicide. Mother Family Medical History: Dementia General Exam Limitations: physical limitation (hard of hearing) General appearance: alert, in no apparent distress Head exam: Present: atraumatic, normocephalic, normal inspection Eye exam: Present: normal appearance, PERRL, EOMI. Absent: scleral icterus, conjunctival injection, periorbital swelling ENT exam: Present: normal exam, mucous membranes moist Neck exam: Present: normal inspection. Absent: tenderness, meningismus, lymphadenopathy Respiratory exam: Present: normal lung sounds bilaterally. Absent: respiratory distress, wheezes, rales, rhonchi, stridor Cardiovascular Exam: Present: regular rate, normal rhythm, normal heart sounds. Absent: systolic murmur, diastolic murmur, rubs, gallop, clicks GI/Abdominal exam: Present: soft, normal bowel sounds. Absent: distended, tenderness, guarding, rebound, rigid Extremities exam: Present: normal inspection, full ROM, normal capillary refill. Absent: tenderness, pedal edema, joint swelling, calf tenderness Back exam: Present: normal inspection Neurological exam: Present: alert, oriented X3, CN II-XII intact Psychiatric exam: Present: normal affect, normal mood Skin exam: Present: warm, dry, intact, normal color. Absent: rash Course Vital Signs 08/30/22 08/30/22 08/30/22 13:59 15:12 17:34 Pulse Rate 103 H 90 Respiratory 20 20 20 Rate Blood Pressure 139/82 123/73 O2 Sat by Pulse 94 L 91 L Oximetry 08/30/22 18:08 Pulse Rate 81 Respiratory 20 Rate Blood Pressure 116/70 O2 Sat by Pulse 91 L Oximetry Chest Pain MDM - MDM Was pt. sent in by a medical professional or institution (KATTY Rosenthal, [employer] GRINDER OPERATOR, urgent care, hospital, or [facility]...) When possible be specific @ -no Did you speak to anyone other than the patient for history (EMS, parent, family, police, friend...)? What history was obtained from this source @ - provides history Did you review nursing and triage notes (agree or disagree)? Why? @ -I reviewed and agree with nursing and triage notes Were old charts reviewed (outside hosp., previous admission, EMS record, old EKG, old radiological studies, urgent care reports/EKG's, [facility] records)? Report findings @ -no Differential Diagnosis (chest pain, altered mental status, abdominal pain women, abdominal pain men, vaginal bleeding, weakness, fever, dyspnea, syncope, headac he, dizziness, GI bleed, back pain, seizure, CVA, palpatations, mental health, musculoskeletal)? @ -nstemi, stemi, unstable angina, pe, msk strain EKG interpreted by me (3pts min.). @ -Yes and demonstrates sinus rhythm with a rate of 87. NM interval 231. QRS 104. QTC 412. First-degree AV block. ST depression in lead 3 X-rays interpreted by me (1pt min.). @ -yes - pleural effusions CT interpreted by me (1pt min.). @ -None done U/S interpreted by me (1pt. min.). @ -None done What testing was considered but not performed or refused? (CT, X-rays, U/S, labs)? Why? @ -None What meds were considered but not given or refused? Why? @ -None Did you discuss the management of the patient with other professionals (professionals i.e. KATTY Rosenthal, [employer] GRINDER OPERATOR, lab, RT, psych nurse, social work assistant, supervisor of instruction, teacher, ecological technical officer, director case management)? Give summary @ -yojana who will admit pt Was smoking cessation discussed for >3mins.? @ -No Was critical care preformed (if so, how long)? @ -no Were there social determinants of health that impacted care today? How? (Homelessness, low income, unemployed, alcoholism, drug addiction, transportation, low edu. Level, literacy, decrease access to med. care, snf, rehab)? @ -No Was there de-escalation of care discussed even if they declined (Discuss DNR or withdrawal of care, Hospice)? DNR status @ -No What co-morbidities impacted this encounter? (DM, HTN, Smoking, COPD, CAD, Cancer, CVA, ARF, Chemo, Hep., AIDS, mental health diagnosis, sleep apnea, morbid obesity)? @ -acs Was patient admitted / discharged? Hospital course, mention meds given and route, prescriptions, significant lab abnormalities, going to OR and other pertinent info. @ -Upon arrival the patient is placed into room 2. Thorough history and physical exam was performed. does present to bedside and is able to provide a better history. Laboratory studies are conducted. chest x-ray is performed. Chest x-ray does demonstrate pleural effusions however BNP is low. He is given a dose of Lasix. Patient also given aspirin. Recommended admission because of his significant cardiac history for to the patient was agreeable. Spoke with Pietro from [facility] who agreed to admit the patient Undiagnosed new problem with uncertain prognosis? @ -yes Drug Therapy requiring intensive monitoring for toxicity (Heparin, Nitro, Insulin, Cardizem)? @ -No Were any procedures done? @ -No Diagnosis/symptom? @ -acute resp insuff, pleural effusions, chest pain Acute, or Chronic, or Acute on Chronic? @ -acute Uncomplicated (without systemic symptoms) or Complicated (systemic symptoms)? @ -complicated Side effects of treatment? @ -ijmbo Exacerbation, Progression, or Severe Exacerbation? @ -No Poses a threat to life or bodily function? How? (Chest pain, USA, HI, pneumonia, PE, COPD, DKA, ARF, appy, cholecystitis, CVA, Diverticulitis, Homicidal, Suicidal, threat to staff... and all critical care pts) @ -yes cp can be acute coronary event Disposition Clinical Impression: Chest pain, Pleural effusion Disposition: ADMITTED IP TO THIS [facility] Condition: Stable Is patient prescribed a controlled substance at d/c from ED?: No Time of Disposition: 15:41 Decision to Admit Reason: Admit from EC Decision Date: 08/30/22 Decision Time: 15:41
--- NOTE | 2022-08-30 14:44 | XR ---
EXAMINATION TYPE: XR chest 2V DATE OF EXAM: 08/30/2022 2:18 PM COMPARISON: Chest radiographs from 12/30/2021 TECHNIQUE: XR chest 2V Frontal and lateral views of the chest. CLINICAL INDICATION:Male, 87 years old with history of Chest Pain; FINDINGS: Lungs/Pleura: No evidence of focal consolidation or pneumothorax. Blunting of the costophrenic angles is present. Pulmonary vascularity: Pulmonary vascular congestion. Heart/mediastinum: Cardiomediastinal silhouette is enlarged and stable. Musculoskeletal: No acute osseous pathology. IMPRESSION: Cardiomegaly, pulmonary vascular congestion and bilateral pleural effusions. Correlate with BNP for c ongestive heart failure.
[2022-08-30 14:49] LABS: ALT 35 U/L (4-49); AST 42 U/L (17-59); African American GFR (CKD) 65 (>60 ml/min/1.73 sqM); Albumin 4.4 g/dL (3.5-5.0); Alkaline Phosphatase 60 U/L (38-126); Anion Gap 10 mmol/L; Blood Urea Nitrogen 16 mg/dL (9-20); Calcium 9.5 mg/dL (8.4-10.2); Carbon Dioxide 23 mmol/L (22-30); Chloride 107 mmol/L (98-107); Glucose 117 mg/dL (74-99); Lipase 90 U/L (23-300); Non-African American GFR(CKD) 56 (>60 ml/min/1.73 sqM); Potassium 4.2 mmol/L (3.5-5.1); Sodium 140 mmol/L (137-145); Total Bilirubin 2.5 mg/dL (0.2-1.3); Total Protein 7.2 g/dL (6.3-8.2)
[2022-08-30] MEDS ORDERED: NALOXONE 0.4 MG/ML 1 ML VIAL IV PRN (15:41)
[2022-08-30] MEDS ORDERED: FUROSEMIDE 10 MG/ML 4 ML VIAL IV STA (15:50)
[2022-08-30] MEDS ORDERED: ASPIRIN 81 MG PO STA (16:30)
--- NOTE | 2022-08-30 17:56 | P.HPIM ---
History of Present Illness H&P Date: 08/30/22 Patient is a 87-year-old male with a past medical history of coronary artery disease status post CABG, hypertension, hyperlipidemia, selby's lung who presents to the ED with chest pain. Patient is a poor historian secondary to underlying dementia. Per at bedside she has noticed that he has been having issues with his memory. She did complain to his PCP about his memory issues however his PCP did not think he had dementia. Per his PCP did not make perform any memory test. states that today patient was walking around outside. He then sat down and clutched his chest and appeared to be having a hard time breathing. His knowing that he had a significant cardiac history called EMS. By the time EMS arrived patient denied any chest pain or shortness of breath. Patient also currently denying any chest pain or shortness of breath. He doesn't know why he is in the hospital. Per patient also stopped seeing his lgsw because she states that he was frustrated by them because they would not tell him any of his results. In the ED patient's troponin was negative. EKG negative for any ischemic changes. Patient bilirubin was mildly elevated at 2.5. Chest x-ray showed cardiomegaly with pulmonary vascular congestion and bilateral pleural effusions. Patient's BNP only 75. Per she has not noticed him complaining of any orthopnea or PND at nighttime. In the ED patient was given Lasix 40 mg once. Patient also given aspirin. Patient was then referred to admission and to also be evaluated by cardiology. Review of systems: 10 ROS reviewed and are negative except as noted in HPI Physical exam General: [Alert and oriented, well nourished, no acute distress]. Eye: [PERRL, EOMI, normal conjunctiva]. HENT: [Normocephalic, clear tympanic membranes, normal hearing, moist oral mucosa, no scleral icterus, no sinus tenderness]. Neck: [Supple, non-tender, no carotid bruits, no JVD, no lymphadenopathy]. Lungs: [Clear to auscultation and percussion, non-labored respiration]. Heart: [Normal rate, regular rhythm, no murmur, gallop or edema]. Abdomen: [Soft, non-tender, non-distended, normal bowel sounds, no masses]. Musculoskeletal: [Normal range of motion and strength, no tenderness or swelling]. Skin: [Skin is warm, dry and pink, no rashes or lesions]. Neurologic: [Awake, alert, and oriented X3, CN II-XII intact]. Psychiatric: [Cooperative, appropriate mood and affect]. Assessment and plan Active conditions Chest pain Suspect mild acute diastolic heart failure Mildly elevated bilirubin Chronic conditions History of coronary artery disease status post CABG Hypertension Hyperlipidemia Selby's lung -Stable Rule out ACS. First set troponin negative. We'll trend troponin 2 more times Resume atorvastatin 80 mg daily, aspirin 81 mg by mouth daily, atenolol 12.5 mg daily I reviewed patient's chest x-ray which shows cardiomegaly bilateral pleural effusions and vascular congestion consistent with heart failure. However patient's BNP was only 75. Patient was given IV Lasix 40 mg once in the ED. He currently appears euvolemic. We'll hold off on further diuretics. We'll check echocardiogram. I reviewed patient's echocardiogram from January 2022 which showed normal EF. Consult cardiology I reviewed patient's abdominal ultrasound from 2018 that showed signs of fatty liver. I suspect patient's elevated bilirubin likely due to fatty liver. We'll trend CMP. We'll check a right upper quadrant ultrasound. Resume home meds CODE STATUS:full code (discussed with the ) DVT prophylaxis: Lovenox Discussed with: Patient, ER, rn Anticipated length of stay < than [address]: home Past Medical History Past Medical History: Coronary Artery Disease (CAD), Hyperlipidemia, Hypertension, Myocardial Infarction ([place]) Additional Past Medical History / Comment(s): "Selby's lung", coronary artery disease with previous bypass surgery, head injury one year ago and still gets occasional headaches, low back pain/R hip pain/limited ROM, L knee injury and it will buckle so pt wears a knee brace, recent bilateral pedal edema-pt had recent ultrasound but has not gotten the results plus edema went away, Last Myocardial Infarction Date:: 2001 History of Any Multi-Drug Resistant Organisms: None Reported Past Surgical History: Cholecystectomy, Coronary Bypass/CABG, Heart Catheterization Additional Past Surgical History / Comment(s): 2001 CABG 4 vessel, R leg/foot clips removed, lumbar epidural injections, LP Additional Past Anesthesia/Blood Transfusion Reaction / Comment(s): Pt gets "loopy" with anesthesia and has had longer hospital stays d/t this. Past Psychological History: No Psychological Hx Reported Past Alcohol Use History: None Reported Past Drug Use History: None Reported - Past Family History Father History Unknown: Yes Additional Family Medical History / Comment(s): Father commited suicide. Mother Family Medical History: Dementia Medications and Allergies Home Medications Medication Instructions Recorded Confirmed Type atenoloL 12.5 mg PO DAILY 03/07/15 08/30/22 History Ascorbic Acid [Vitamin C] 500 mg PO DAILY 02/27/19 08/30/22 History Niacin 500 mg PO DAILY 02/27/19 08/30/22 History [place]-3 Fatty Acids/Fish Oil [Fish 1 cap PO DAILY 02/27/19 08/30/22 History Oil 1,000 mg Softgel] L.acidoph,Paracasei, B.lactis 1 cap PO DAILY 08/30/22 08/30/22 History [Probiotic] Rosuvastatin Calcium [Crestor] 40 mg PO DAILY 08/30/22 08/30/22 History Allergies Allergy/AdvReac Type Severity Reaction Status Date / Time No Known Allergies Allergy Verified 08/30/22 16:24 Physical Exam Osteopathic Statement: *. No significant issues noted on an osteopathic structural exam other than those noted in the History and Physical/Consult. Vitals: Vital Signs Pulse Resp BP Pulse Ox 08/30/22 17:34 20 08/30/22 15:12 90 20 123/73 91 L 08/30/22 13:59 103 H 20 139/82 94 L Intake and Output 08/30/22 08/30/22 08/30/22 06:59 14:59 22:59 Other: Weight 77.111 kg Results CBC & Chem 7: 08/30/22 14:08 08/30/22 14:08 Labs: Abnormal Lab Results - Last 24 Hours (Table) 08/30/22 Range/Units 14:08 Glucose 117 H (74-99) mg/dL Total Bilirubin 2.5 H (0.2-1.3) mg/dL
[2022-08-30] MEDS ORDERED: HEPARIN SODIUM 1,000 UN/ML (10ML VL) IV ONE (19:15)
[2022-08-30] MEDS ORDERED: HEPARIN SODIUM 1,000 UN/ML (10ML VL) IV PRN (19:15)
[2022-08-30 19:48] LABS: Basophils # (A) 0.1 k/uL (0-0.2); Basophils % (A) 1 %; Eosinophils # (A) 0.2 k/uL (0-0.7); Eosinophils % (A) 2 %; HCT 48.5 % (39.0-53.0); Lymphocytes # (A) 1.9 k/uL (1.0-4.8); Lymphocytes % (A) 22 %; MCH 31.1 pg (25.0-35.0); MCHC 32.9 g/dL (31.0-37.0); MCV 94.7 fL (80.0-100.0); Mean Platelet Volume 7.2; Monocytes # (A) 0.6 k/uL (0-1.0); Monocytes % (A) 8 %; Neutrophils # (A) 5.6 k/uL (1.3-7.7); Neutrophils % (A) 66 %; Platelet Count 185 k/uL (150-450); RBC 5.12 m/uL (4.30-5.90); RDW 12.7 % (11.5-15.5); WBC 8.4 k/uL (3.8-10.6)
[2022-08-30 20:01] LABS: Prothrombin Time 10.3 sec (9.0-12.0)
[2022-08-30 20:02] LABS: Partial Thromboplastin Time 24.8 sec (22.0-30.0)
[2022-08-30] MEDS: HEPARIN SOD,PORK IN 0.45% NACL 25,000 UNIT in 0.45% NACL 1 250ML.BAG IV SCH (20:12)
--- NOTE | 2022-08-31 07:51 | US ---
EXAMINATION TYPE: US abdomen limited DATE OF EXAM: 08/31/2022 COMPARISON: Ultrasound 01/29/2020 CLINICAL INDICATION: Male, 87 years old with history of elevated bilirubin; GB removed. Poor histori an. TECHNIQUE: Multiple sonographic images of the right upper quadrant are obtained. FINDINGS: EXAM MEASUREMENTS: Liver Length: 15.9 cm CBD: 0.5 cm Right Kidney: 9.7 x 4.7 x 4.5 cm SHOWPLACE MANAGER NOTES: Limited due to bowel gas Pancreas: Obscured by bowel gas Liver: Increased echotexture. Gallbladder: Surgically absent Evidence for sonographic Torres's sign: neg CBD: wnl Right Kidney: No hydronephrosis or masses seen IMPRESSION: 1. Hepatic steatosis. Common bile duct within normal limits for size. 2. Gallbladder not visualized.
[2022-08-31 08:31] LABS: Prothrombin Time 10.8 sec (9.0-12.0)
[2022-08-31 08:46] LABS: Basophils % (A) 0 %; Eosinophils # (A) 0.2 k/uL (0-0.7); Eosinophils % (A) 2 %; HCT 47.9 % (39.0-53.0); HGB 16.1 gm/dL (13.0-17.5); Lymphocytes % (A) 22 %; MCH 30.8 pg (25.0-35.0); MCHC 33.5 g/dL (31.0-37.0); Mean Platelet Volume 8.3; Monocytes # (A) 0.7 k/uL (0-1.0); Monocytes % (A) 8 %; Neutrophils # (A) 5.9 k/uL (1.3-7.7); Neutrophils % (A) 67 %; Platelet Count 177 k/uL (150-450); RBC 5.21 m/uL (4.30-5.90); WBC 8.9 k/uL (3.8-10.6)
[2022-08-31] MEDS: ATORVASTATIN 80 MG TAB PO SCH (08:48)
[2022-08-31] MEDS: METOPROLOL TARTRATE 25 MG TAB PO SCH ×2 (08:49→21:37)
[2022-08-31] MEDS: ISOSORBIDE MONONITRATE ER 30 MG TAB.ER.24H PO SCH (08:49)
[2022-08-31] MEDS: ASPIRIN 81 MG PO SCH (08:49)
[2022-08-31 08:55] LABS: ALT 32 U/L (4-49); AST 49 U/L (17-59); African American GFR (CKD) 79 (>60 ml/min/1.73 sqM); Albumin 4.1 g/dL (3.5-5.0); Albumin/Globulin Ratio 1.5; Alkaline Phosphatase 72 U/L (38-126); Anion Gap 8 mmol/L; Blood Urea Nitrogen 14 mg/dL (9-20); Calcium 9.3 mg/dL (8.4-10.2); Carbon Dioxide 26 mmol/L (22-30); Chloride 106 mmol/L (98-107); Globulin 2.7 g/dL; Glucose 108 mg/dL (74-99); Non-African American GFR(CKD) 69 (>60 ml/min/1.73 sqM); Potassium 3.8 mmol/L (3.5-5.1); Sodium 140 mmol/L (137-145); Total Bilirubin 2.7 mg/dL (0.2-1.3); Total Protein 6.8 g/dL (6.3-8.2)
[2022-08-31] MEDS ORDERED: atenoloL 25 MG TAB PO SCH (09:00)
[2022-08-31] MEDS ORDERED: ENOXAPARIN 40 MG/0.4 ML SYRINGE SQ SCH (09:00)
[2022-08-31 11:20] LABS: Chol/HDL Ratio 3.82 Ratio; LDL Cholesterol,Calculated 46.5 mg/dL (0.0-131.0)
--- NOTE | 2022-08-31 11:43 | P.PN ---
Subjective Progress Note Date: 08/31/22 Hospital Course: 87-year-old male with a past medical history of coronary artery disease status post CABG, hypertension, hyperlipidemia, selby's lung who presents to the ED with chest pain. EKG negative for any ischemic changes. Chest x-ray showed cardiomegaly with pulmonary vascular congestion and bilateral pleural effusions. In the ED patient was given Lasix 40 mg once. Troponin continued to increase, on heparin drip, chest pain has resolved. Cardiology consulted. Echocardiogram pending. Subjective: Patient seen and examined at bedside. No acute events overnight. Chest pain has now resolved. Pertinent positives and negatives as discussed above, a complete review of s ystems was performed and all other systems are negative. Vitals Signs Reviewed. General: nontoxic, no distress, appears at stated age Derm: warm, dry Head: atraumatic, normocephalic, symmetric Eyes: EOMI, no lid lag, anicteric sclera Mouth: no lip lesion, mucus membranes moist Cardiovascular: S1S2 reg, no murmur Lungs: CTA bilateral, no rhonchi, no rales , no accessory muscle use Abdominal: soft, nontender to palpation, no guarding, no appreciable organomegaly Ext: no gross muscle atrophy, no edema, no contractures Neuro: CN II-XI grossly intact, no focal neuro deficits Psych: Alert, oriented, appropriate affect Data Reviewed Today: Pertinent Labs: WBC 8.9, hemoglobin 16.1, APTT 49.6, troponin 3.23, potassium 2.8, triglyceride 214, total cholesterol 121, LDL 46.5, total bilirubin 2.7 Imaging: EKG from this morning independently interpreted, shows sinus rhythm with first-degree AV block, no significant ST-T wave changes Assessment and Plan: Active: NSTEMI Chest pain, now resolved History of CAD status post CABG Bilateral pulmonary vascular congestion Elevated total bilirubin -Currently on heparin drip, dosed based on APTT levels, continue to monitor for any signs of bleeding, repeat CBC tomorrow -No active chest pain, EKG does not show any acute ST-T wave changes -Cardiology has been consulted, pending recommendations -Echocardiogram pending -Continue aspirin 81 mg, atorvastatin 80 mg daily -Also started on metoprolol 25 mg twice a day, and Imdur 30 mg daily -Denies any respiratory complaints at the moment -Liver ultrasound shows hepatic steatosis, no right upper quadrant. Chronic: Hypertension Dyslipidemia Selby's lung DVT ppx: Heparin drip Code status: Full code Anticipated discharge place: Pending clinical course Anticipated discharge time: Pending clinical course Objective - Vital Signs Vital signs: Vital Signs Temp 98.0 F 08/31/22 08:00 Pulse 80 08/31/22 08:00 Resp 18 08/31/22 08:00 BP 125/77 08/31/22 08:00 Pulse Ox 93 L 08/31/22 08:00 FiO2 Intake & Output 08/30/22 08/31/22 08/31/22 18:59 06:59 18:59 Intake Total 180 Output Total 400 Balance -400 180 Weight 77.111 kg Intake: Oral 180 Output: Urine 400 Other: # Voids 1 - Labs CBC & Chem 7: 08/31/22 07:45 08/31/22 07:45 Labs: Abnormal Lab Results - Last 24 Hours (Table) 08/30/22 08/30/22 08/30/22 Range/Units 14:08 18:14 21:09 APTT (22.0-30.0) sec Glucose 117 H (74-99) mg/dL Total Bilirubin 2.5 H (0.2-1.3) mg/dL Troponin I 1.650 H* 3.230 H* (0.000-0.034) ng/mL Triglycerides (0.00-149.00) mg/dL VLDL Cholesterol, Calc (5.00-40.00) mg/dL HDL Cholesterol (40.00-60.00) mg/dL 08/31/22 08/31/22 Range/Units 01:00 07:45 APTT 49.6 H (22.0-30.0) sec Glucose 108 H (74-99) mg/dL Total Bilirubin 2.7 H (0.2-1.3) mg/dL Troponin I (0.000-0.034) ng/mL Triglycerides 214.00 H (0.00-149.00) mg/dL VLDL Cholesterol, Calc 42.80 H (5.00-40.00) mg/dL HDL Cholesterol 31.70 L (40.00-60.00) mg/dL
--- NOTE | 2022-08-31 13:40 | P.CRDCN ---
History of Present Illness Consult date: 08/31/22 Consult reason: chest pain History of present illness: History of present illness: This is an 87 year old male with a past medical history of coronary artery disease status post 4 vessel CABG 20 years ago, hypertension, hyperlipidemia, short-term memory deficit. Information is obtained from the patient's . She states he had sudden onset of chest pain across his chest after he he and gone for a walk around a pond. He also had shortness of breath at the time. Patient was holding been grabbing his chest. The pain lasted for about 15 minutes and was gone by the time EMS arrived. Patient denies any chest pain at this time. Patient has been started on heparin drip. Discussed treatment options with the patient and his . Option chosen to manage medically and forego cardiac catheterization at this time. EKG Sinus rhythm with no acute ST changes. Chest x-ray: Cardiomegaly, pulmonary vascular congestion and bilateral pleural effusions CBC unremarkable. Electrolytes and renal function normal. Troponin 0.012, 1.65, 3.23. Blood sugar 108. Total bilirubin 2.7 otherwise liver function tests are normal. Triglycerides 214, cholesterol 121, LDL 46, HDL 31. Home cardiac medications: Atenolol 12.5 mg daily, Crestor 40 mg daily Review Of Systems: At the time of my evaluation: Constitutional: No fever, no chills. No weakness, fatigue or lethargy. EENT: No headache. No dizziness. Lungs: No shortness of breath, cough, no sputum production. No wheezing. Cardiovascular: No chest pain, no lower extremity edema. No palpitations. No paroxysmal nocturnal dyspnea. No orthopnea. No lightheadedness or dizziness. No syncopal episodes. Abdominal: No abdominal pain. No nausea, vomiting. No diarrhea. No constipation. No bloody or tarry stools. Genitourinary: No dysuria.. No urinary retention. Musculoskeletal: No myalgias. No muscle weakness, no frequent falls. No back pain. No neck pain. Integumentary: No wounds. No rash. No unusual bruising. Neurologic: No aphasia. No facial droop. No change in mentation. No head injury. No headache. Physical examination: Gen: This is an 87-year-old male. He is resting in bed appears to be comfortable and in no acute distress. VS: reviewed HEENT: Head is atraumatic, normocephalic. Pupils equal, round. Sclerae is anicteric. NECK: Supple. No JVD. . LUNGS: Clear to auscultation. No wheezes or rhonchi. No intercostal retractions. HEART: Regular rate and rhythm. No murmur. ABDOMEN: Soft No tenderness. EXTREMITIES: No pedal edema. No calf tenderness. NEUROLOGICAL: Patient is awake, alert and oriented x3. Assessment: Elevated troponin, acute non-ST elevated RI History of coronary artery disease status post 4 vessel CABG Hypertension Hyperlipidemia Plan: Start patient on aspirin 81 mg daily, Lipitor 80 mg daily, Imdur 30 mg daily, Lopressor 25 mg twice daily Continue heparin drip for another 24 hours Obtain 2-D echocardiogram and Doppler study to assess cardiac structure and function Further recommendations to follow based upon clinical course Thank you kindly for this consultation. Nurse practitioner note has been reviewed, I agree with documented findings and plan of care. Patient was seen and examined. Past Medical History Past Medical History: Coronary Artery Disease (CAD), Hyperlipidemia, Hypertension, Myocardial Infarction ([place]) Additional Past Medical History / Comment(s): "Selby's lung", coronary artery disease with previous bypass surgery, head injury one year ago and still gets occasional headaches, low back pain/R hip pain/limited ROM, L knee injury and it will buckle so pt wears a knee brace, recent bilateral pedal edema-pt had recent ultrasound but has not gotten the results plus edema went away, Last Myocardial Infarction Date:: 2001 History of Any Multi-Drug Resistant Organisms: None Reported Past Surgical History: Cholecystectomy, Coronary Bypass/CABG, Heart Catheterization Additional Past Surgical History / Comment(s): 2001 CABG 4 vessel, R leg/foot clips removed, lumbar epidural injections, LP Additional Past Anesthesia/Blood Transfusion Reaction / Comment(s): Pt gets "loopy" with anesthesia and has had longer hospital stays d/t this. Past Psychological History: No Psychological Hx Reported Past Alcohol Use History: None Reported Past Drug Use History: None Reported - Past Family History Father History Unknown: Yes Additional Family Medical History / Comment(s): Father commited suicide. Mother Family Medical History: Dementia Medications and Allergies Home Medications Medication Instructions Recorded Confirmed Type atenoloL 12.5 mg PO DAILY 03/07/15 08/30/22 History Ascorbic Acid [Vitamin C] 500 mg PO DAILY 02/27/19 08/30/22 History Niacin 500 mg PO DAILY 02/27/19 08/30/22 History [place]-3 Fatty Acids/Fish Oil [Fish 1 cap PO DAILY 02/27/19 08/30/22 History Oil 1,000 mg Softgel] L.acidoph,Paracasei, B.lactis 1 cap PO DAILY 08/30/22 08/30/22 History [Probiotic] Rosuvastatin Calcium [Crestor] 40 mg PO DAILY 08/30/22 08/30/22 History Allergies Allergy/AdvReac Type Severity Reaction Status Date / Time No Known Allergies Allergy Verified 08/30/22 16:24 Physical Exam Vitals: Vital Signs Temp Pulse Pulse Resp BP BP Pulse Ox 08/31/22 04:00 91 16 116/62 94 L 08/31/22 00:00 91 17 120/65 94 L 08/30/22 18:45 98.1 F 79 16 153/76 91 L 08/30/22 18:08 81 20 116/70 91 L 08/30/22 17:34 20 08/30/22 15:12 90 20 123/73 91 L 08/30/22 13:59 103 H 20 139/82 94 L Intake and Output 08/30/22 08/31/22 08/31/22 22:59 06:59 14:59 Output Total 400 Balance -400 Output: Urine 400 Other: # Voids 1 Weight 77.111 kg Results 08/31/22 07:45 08/31/22 07:45 Cardiac Enzymes 08/30/22 08/30/22 08/30/22 Range/Units 14:08 14:08 18:14 AST 42 (17-59) U/L Troponin I <0.012 1.650 H* (0.000-0.034) ng/mL 08/30/22 Range/Units 21:09 AST (17-59) U/L Troponin I 3.230 H* (0.000-0.034) ng/mL Coagulation 08/30/22 08/30/22 08/31/22 Range/Units 14:08 19:30 01:00 PT 10.4 10.3 (9.0-12.0) sec APTT 23.7 24.8 49.6 H (22.0-30.0) sec CBC 08/30/22 08/30/22 Range/Units 14:08 19:30 WBC 8.1 8.4 (3.8-10.6) k/uL RBC 4.99 5.12 (4.30-5.90) m/uL Hgb 15.7 16.0 (13.0-17.5) gm/dL Hct 47.0 48.5 (39.0-53.0) % Plt Count 180 185 (150-450) k/uL Comprehensive Metabolic Panel 08/30/22 Range/Units 14:08 Sodium 140 (137-145) mmol/L Potassium 4.2 (3.5-5.1) mmol/L Chloride 107 (98-107) mmol/L Carbon Dioxide 23 (22-30) mmol/L BUN 16 (9-20) mg/dL Creatinine 1.17 (0.66-1.25) mg/dL Glucose 117 H (74-99) mg/dL Calcium 9.5 (8.4-10.2) mg/dL AST 42 (17-59) U/L ALT 35 (4-49) U/L Alkaline Phosphatase 60 (38-126) U/L Total Protein 7.2 (6.3-8.2) g/dL Albumin 4.4 (3.5-5.0) g/dL Current Medications Generic Name Dose Route Start Last Admin Trade Name Freq PRN Reason Stop Dose Admin Aspirin 81 mg 08/31/22 09:00 Aspirin 81 Mg PO DAILY [facility] Atenolol 12.5 mg 08/31/22 09:00 Atenolol 25 Mg Tab PO DAILY [facility] Atorvastatin Calcium 80 mg 08/31/22 09:00 Atorvastatin 80 Mg Tab PO DAILY [facility] Heparin Sodium (Porcine) 0 unit 08/30/22 19:15 Heparin Sodium 1,000 Un/Ml (10ml Vl) IV PER PROTOCOL PRN Low PTT Protocol Heparin Sodium/Sodium Chloride 250 mls @ 9.253 mls/hr 08/30/22 19:15 08/30/22 20:12 25,000 unit/ Sodium Chloride IV 12 units/kg/hr .Q24H [place] 9.253 mls/hr Administration Protocol 12 UNITS/KG/HR Naloxone HCl 0.2 mg 08/30/22 15:41 Naloxone 0.4 Mg/Ml 1 Ml Vial IV Q2M PRN Opioid Reversal Intake and Output 06/18/23 06/19/23 06/19/23 22:59 06:59 14:59 Output Total 400 Balance -400 Output: Urine 400 Other: # Voids 1 Weight 77.111 kg 08/30/22 19:30 08/30/22 14:08
--- NOTE | 2022-08-31 14:16 | CA ---
Transthoracic Echo Report Name: Dennis Garay Age: 87 Gender: M : 1935 Exam Date: 08/31/2022 10:00 Exam Location: [facility] Ht (in): 69 Wt (lb): 170 Ordering Physician: Jose Rai MD Attending/Referring Phys: Director Agricultural Services Siobhan Henson [facility] Procedure CPT: Indications: Chest Pain Cardiac Hx: Technical Quality: Technically difficult study Contrast 1: Lumason Total Dose (mL): 5 Contrast 2: Total Dose (mL): MEASUREMENTS (Male / Female) Normal Values 2D ECHO LV Diastolic Diameter PLAX 3.7 cm 4.2 - 5.9 / 3.9 - 5.3 cm LV Systolic Diameter PLAX 2.4 cm IVS Diastolic Thickness 1.2 cm 0.6 - 1.0 / 0.6 - 0.9 cm LVPW Diastolic Thickness 1.3 cm 0.6 - 1.0 / 0.6 - 0.9 cm LV Relative Wall Thickness 0.7 RV Internal Dim ED PLAX 4.1 cm M-MODE Aortic Root Diameter MM 3.3 cm LA Systolic Diameter MM 5.0 cm LA Ao Ratio MM 1.5 AV Cusp Separation MM 2.0 cm DOPPLER AV Peak Velocity 82.7 cm/s AV Peak Gradient 2.7 mmHg AV Mean Velocity 58.2 cm/s AV Mean Gradient 1.5 mmHg AV Velocity Time Integral 14.7 cm LVOT Peak Velocity 69.8 cm/s LVOT Peak Gradient 1.9 mmHg LVOT Velocity Time Integral 12.4 cm Mitral E Point Velocity 42.4 cm/s Mitral A Point Velocity 59.6 cm/s Mitral E to A Ratio 0.7 MV Deceleration Time 210.5 ms LV E' Lateral Velocity 8.8 cm/s Mitral E to LV E' Lateral Ratio 4.8 LV E' Septal Velocity 6.9 cm/s Mitral E to LV E' Septal Ratio 6.1 TR Peak Velocity 225.0 cm/s TR Peak Gradient 20.3 mmHg Right Atrial Pressure 3.0 mmHg Pulmonary Artery Systolic Pressu 23.3 mmHg Right Ventricular Systolic Press 23.3 mmHg FINDINGS Left Ventricle Mildly increased septal wall thickness. Normal Left ventricular size, systolic function with no obvious regional wall motion abnormalities. Left ventricular ejection fraction is estimated at 55%. Right Ventricle Mild to moderate right ventricular dilatation. Mildly reduced right ventricular global systolic function. Right Atrium Moderate right atrial dilatation. Left Atrium Mild left atrial dilatation. Interatrial septal aneurysm. Mitral Valve Structurally normal mitral valve. No mitral regurgitation. Aortic Valve Trileaflet aortic valve. No aortic valve stenosis or regurgitation. Tricuspid Valve Structurally normal tricuspid valve. Trace to mild tricuspid regurgitation. Pulmonic Valve Structurally normal pulmonic valve. Trace pulmonic regurgitation. Pericardium No pericardial effusion. Aorta Normal size aortic root and proximal ascending aorta. CONCLUSIONS Left ventricular ejection fraction 55% Mild increased left ventricular wall thickness Mild to moderate right ventricular dilation Moderate right atrial dilation No mitral regurgitation Trace to mild tricuspid regurgitation Previewed by: Dr. Noah Bower DO (Electronically Signed) Final Date: 31 August 2022 14:15
[2022-08-31] MEDS: HEPARIN SOD,PORK IN 0.45% NACL 25,000 UNIT in 0.45% NACL 1 250ML.BAG IV SCH (21:36)
[2022-09-01 08:20] LABS: Basophils % (A) 1 %; Eosinophils # (A) 0.2 k/uL (0-0.7); Eosinophils % (A) 2 %; HGB 15.6 gm/dL (13.0-17.5); Lymphocytes # (A) 2.2 k/uL (1.0-4.8); Lymphocytes % (A) 24 %; MCH 31.8 pg (25.0-35.0); MCHC 33.1 g/dL (31.0-37.0); MCV 96.1 fL (80.0-100.0); Mean Platelet Volume 8.7; Monocytes # (A) 0.6 k/uL (0-1.0); Monocytes % (A) 7 %; Neutrophils % (A) 66 %; Platelet Count 151 k/uL (150-450); RBC 4.89 m/uL (4.30-5.90); RDW 12.9 % (11.5-15.5); WBC 9.2 k/uL (3.8-10.6)
[2022-09-01] MEDS: ISOSORBIDE MONONITRATE ER 30 MG TAB.ER.24H PO SCH (08:27)
[2022-09-01] MEDS: ASPIRIN 81 MG PO SCH (08:27)
[2022-09-01] MEDS: ATORVASTATIN 80 MG TAB PO SCH (08:27)
[2022-09-01] MEDS: METOPROLOL TARTRATE 25 MG TAB PO SCH ×2 (08:27→20:53)
[2022-09-01] MEDS: EZETIMIBE 10 MG TAB PO SCH (10:13)
--- NOTE | 2022-09-01 10:58 | P.PN ---
Subjective Progress Note Date: 09/01/22 Hospital Course: 87-year-old male with a past medical history of coronary artery disease status post CABG, hypertension, hyperlipidemia, selby's lung who presents to the ED with chest pain. EKG negative for any ischemic changes. Chest x-ray showed cardiomegaly with pulmonary vascular congestion and bilateral pleural effusions. In the ED patient was given Lasix 40 mg once. Troponin continued to increase, on heparin drip, chest pain has resolved. Cardiology consulted. Echocardiogram showed LVEF 55%, mild to moderate right ventricular dilatation, moderate right atrial dilatation, trace to mild TR. Subjective: Patient seen and examined at bedside. No acute events overnight. Denies any chest pain. Has been ambulating. Pertinent positives and negatives as discussed above, a complete review of systems was performed and all other systems are negative. Vitals Signs Reviewed. General: nontoxic, no distress, appears at stated age Derm: warm, dry Head: atraumatic, normocephalic, symmetric Eyes: EOMI, no lid lag, anicteric sclera Mouth: no lip lesion, mucus membranes moist Cardiovascular: S1S2 reg, no murmur Lungs: CTA bilateral, no rhonchi, no rales , no accessory muscle use Abdominal: soft, nontender to palpation, no guarding, no appreciable organomegaly Ext: no gross muscle atrophy, no edema, no contractures Neuro: CN II-XI grossly intact, no focal neuro deficits Psych: Alert, oriented, appropriate affect Data Reviewed Today: Pertinent Labs: WBC 9.2, 15.6, platelet 151, PTT 46.9 Imaging: Echocardiogram showed LVEF 55%, mild to moderate right ventricular dilatation, moderate right atrial dilatation, trace to mild TR. Assessment and Plan: Active: NSTEMI Chest pain, now resolved History of CAD status post CABG Bilateral pulmonary vascular congestion Elevated total bilirubin -Heparin drip now discontinued -No active chest pain -Cardiology following -Continue aspirin 81 mg, atorvastatin 80 mg daily -on metoprolol 25 mg twice a day, and Imdur 30 mg daily -Also started on ezetimibe -Denies any respiratory complaints at the moment -Liver ultrasound shows hepatic steatosis, no right upper quadrant. Chronic: Hypertension Dyslipidemia Selby's lung DVT ppx: Subcu heparin Code status: Full code Anticipated discharge place: Home Anticipated discharge time: Today or tomorrow Objective - Vital Signs Vital signs: Vital Signs Temp 97.9 F 09/01/22 08:00 Pulse 78 09/01/22 08:00 Resp 17 09/01/22 08:00 BP 119/71 09/01/22 08:00 Pulse Ox 91 L 09/01/22 08:00 FiO2 Intake & Output 08/31/22 09/01/22 09/01/22 18:59 06:59 18:59 Intake Total 180 200 118 Balance 180 200 118 Intake: Oral 180 200 118 Other: Voiding Method Toilet Urinal # Voids 2 - Labs CBC & Chem 7: 09/01/22 07:54 08/31/22 07:45 Labs: Abnormal Lab Results - Last 24 Hours (Table) 08/31/22 09/01/22 Range/Units 07:45 01:26 APTT 46.9 H (22.0-30.0) sec Triglycerides 214.00 H (0.00-149.00) mg/dL VLDL Cholesterol, Calc 42.80 H (5.00-40.00) mg/dL HDL Cholesterol 31.70 L (40.00-60.00) mg/dL
--- NOTE | 2022-09-01 14:26 | P.PN ---
Subjective Progress Note Date: 09/01/22 History of present illness: This is an 87 year old male with a past medical history of coronary artery dis ease status post 4 vessel CABG 20 years ago, hypertension, hyperlipidemia, short-term memory deficit. Information is obtained from the patient's . She states he had sudden onset of chest pain across his chest after he he and gone for a walk around a pond. He also had shortness of breath at the time. Patient was holding been grabbing his chest. The pain lasted for about 15 minutes and was gone by the time EMS arrived. Patient denies any chest pain at this time. Patient has been started on heparin drip. Discussed treatment options with the patient and his . Option chosen to manage medically and forego cardiac catheterization at this time. EKG Sinus rhythm with no acute ST changes. Chest x-ray: Cardiomegaly, pulmonary vascular congestion and bilateral pleural effusions CBC unremarkable. Electrolytes and renal function normal. Troponin 0.012, 1.65, 3.23. Blood sugar 108. Total bilirubin 2.7 otherwise liver function tests are normal. Triglycerides 214, cholesterol 121, LDL 46, HDL 31. Home cardiac medications: Atenolol 12.5 mg daily, Crestor 40 mg daily 09/01 Patient is seen today in follow-up. He denies having any chest pain or shortness of breath. Patient's states he ambulated in the hallway twice yesterday and didn't well. He is still on a heparin drip which we will discontinue today. Patient to ambulate in the hallway again and monitor for symptoms. Plan is to continue medical management and not proceed with cardiac catheterization. Echocardiogram reveals EF 55%, mild to moderate right ventricular dilation, mild increased left ventricular wall thickness, moderate right atrial dilation. No mitral regurgitation. Trace to mild tricuspid reg urgitation. Heart rate is in the 60s and 70s, blood pressure 119/71. Physical examination: Gen: This is an 87-year-old male. He is resting in chair appears to be comfortable and in no acute distress. VS: reviewed HEENT: Head is atraumatic, normocephalic. Pupils equal, round. Sclerae is anicteric. NECK: Supple. No JVD. . LUNGS: Clear to auscultation. No wheezes or rhonchi. No intercostal retractions. HEART: Regular rate and rhythm. No murmur. ABDOMEN: Soft No tenderness. EXTREMITIES: No pedal edema. No calf tenderness. NEUROLOGICAL: Patient is awake, alert and oriented x3. Assessment: Elevated troponin, acute non-ST elevated OH History of coronary artery disease status post 4 vessel CABG Hypertension Hyperlipidemia Plan: Continue patient on aspirin 81 mg daily, Lipitor 80 mg daily, Imdur 30 mg daily, Lopressor 25 mg twice daily Discontinue heparin drip Increase patient's activity and ambulate in the hallway. Anticipate probable discharge tomorrow. Further recommendations to follow based upon clinical course Nurse practitioner note has been reviewed, I agree with documented findings and plan of care. Patient was seen and examined. Objective - Vital Signs Vital signs: Vital Signs Temp 97.9 F 09/01/22 08:00 Pulse 78 09/01/22 08:00 Resp 17 09/01/22 08:00 BP 119/71 09/01/22 08:00 Pulse Ox 91 L 09/01/22 08:00 FiO2 Intake & Output 08/31/22 09/01/22 09/01/22 18:59 06:59 18:59 Intake Total 180 200 118 Balance 180 200 118 Intake: Oral 180 200 118 Other: Voiding Method Toilet Urinal # Voids 2 - Labs CBC & Chem 7: 09/01/22 07:54 08/31/22 07:45 Labs: Abnormal Lab Results - Last 24 Hours (Table) 08/31/22 09/01/22 Range/Units 07:45 01:26 APTT 46.9 H (22.0-30.0) sec Triglycerides 214.00 H (0.00-149.00) mg/dL VLDL Cholesterol, Calc 42.80 H (5.00-40.00) mg/dL HDL Cholesterol 31.70 L (40.00-60.00) mg/dL
[2022-09-01] MEDS: HEPARIN SODIUM,PORCINE/PF 5,000 UNIT/0.5 ML SYRINGE SQ SCH ×2 (15:22→22:52)
[2022-09-02] MEDS: HEPARIN SODIUM,PORCINE/PF 5,000 UNIT/0.5 ML SYRINGE SQ SCH (08:20)
[2022-09-02] MEDS: METOPROLOL TARTRATE 25 MG TAB PO SCH (08:20)
[2022-09-02] MEDS: ASPIRIN 81 MG PO SCH (08:21)
[2022-09-02] MEDS: EZETIMIBE 10 MG TAB PO SCH (08:21)
[2022-09-02] MEDS: ISOSORBIDE MONONITRATE ER 30 MG TAB.ER.24H PO SCH (08:21)
[2022-09-02] MEDS: ATORVASTATIN 80 MG TAB PO SCH (08:21)
--- NOTE | 2022-09-02 10:48 | P.PN ---
Subjective Progress Note Date: 09/02/22 History of present illness: This is an 87 year old male with a past medical history of coronary artery dis ease status post 4 vessel CABG 20 years ago, hypertension, hyperlipidemia, short-term memory deficit. Information is obtained from the patient's . She states he had sudden onset of chest pain across his chest after he he and gone for a walk around a pond. He also had shortness of breath at the time. Patient was holding been grabbing his chest. The pain lasted for about 15 minutes and was gone by the time EMS arrived. Patient denies any chest pain at this time. Patient has been started on heparin drip. Discussed treatment options with the patient and his . Option chosen to manage medically and forego cardiac catheterization at this time. EKG Sinus rhythm with no acute ST changes. Chest x-ray: Cardiomegaly, pulmonary vascular congestion and bilateral pleural effusions CBC unremarkable. Electrolytes and renal function normal. Troponin 0.012, 1.65, 3.23. Blood sugar 108. Total bilirubin 2.7 otherwise liver function tests are normal. Triglycerides 214, cholesterol 121, LDL 46, HDL 31. Home cardiac medications: Atenolol 12.5 mg daily, Crestor 40 mg daily 09/01 Patient is seen today in follow-up. He denies having any chest pain or shortness of breath. Patient's states he ambulated in the hallway twice yesterday and didn't well. He is still on a heparin drip which we will discontinue today. Patient to ambulate in the hallway again and monitor for symptoms. Plan is to continue medical management and not proceed with cardiac catheterization. Echocardiogram reveals EF 55%, mild to moderate right ventricular dilation, mild increased left ventricular wall thickness, moderate right atrial dilation. No mitral regurgitation. Trace to mild tricuspid reg urgitation. Heart rate is in the 60s and 70s, blood pressure 119/71. 09/02 Patient is seen today in follow-up. His states he was walking in the hallway just now. He has not experienced any chest pain, shortness of breath, lightheadedness or dizziness. Patient has been tolerating the new medication. Blood pressure 123/71, heart rate 96, telemetry sinus rhythm. Yesterday, patient was started on Zetia as well. Physical examination: Gen: This is an 87-year-old male. He is resting in chair appears to be comfortable and in no acute distress. VS: reviewed HEENT: Head is atraumatic, normocephalic. Pupils equal, round. Sclerae is anicteric. NECK: Supple. No JVD. . LUNGS: Clear to auscultation. No wheezes or rhonchi. No intercostal retractions. HEART: Regular rate and rhythm. No murmur. ABDOMEN: Soft No tenderness. EXTREMITIES: No pedal edema. No calf tenderness. NEUROLOGICAL: Patient is awake, alert. Assessment: Elevated troponin, acute non-ST elevated MT History of coronary artery disease status post 4 vessel CABG Hypertension Hyperlipidemia Plan: Continue patient on aspirin 81 mg daily, Lipitor 80 mg daily, Imdur 30 mg daily, Lopressor 25 mg twice daily, Zetia 10 mg daily Patient is cleared from cardiology for discharge home. He can go home on the current cardiac medications and follow-up with Dr. Rodriguez in one week. Nurse practitioner note has been reviewed, I agree with documented findings and plan of care. Patient was seen and examined. Objective - Vital Signs Vital signs: Vital Signs Temp 98.6 F 09/02/22 04:00 Pulse 58 L 09/02/22 04:00 Resp 16 09/02/22 04:00 BP 93/58 09/02/22 04:00 Pulse Ox 93 L 09/02/22 04:00 FiO2 Intake & Output 09/01/22 09/02/22 09/02/22 18:59 06:59 18:59 Intake Total 958 118 Balance 958 118 Intake: Oral 958 118 Other: Voiding Method Toilet Urinal # Voids 2 1 1 - Labs CBC & Chem 7: 09/01/22 07:54 08/31/22 07:45
[2022-09-02 11:19] VITALS: BP 97/62; PULSE 88; RESP 16; TEMP 98
--- NOTE | 2022-09-02 12:11 | P.DS ---
Providers Date of admission: 08/31/22 12:03 Expected date of discharge: 09/02/22 Attending physician: Jo Jamil DO Consults: 08/30/22 15:48 Consult Physician Urgent Consulting Provider: [facility] Consult Reason/Comments: acute chest pain, hx cabg Do you want consulting provider notified?: Yes Primary care physician: Jin Espinoza Hospital Course: Discharge Diagnosis: NSTEMI Chest pain, now resolved History of CAD status post CABG Bilateral pulmonary vascular congestion Elevated total bilirubin Hospital Course: 87-year-old male with a past medical history of coronary artery disease status post CABG, hypertension, hyperlipidemia, dean's lung who presents to the ED with chest pain. EKG negative for any ischemic changes. Chest x-ray showed cardiomegaly with pulmonary vascular congestion and bilateral pleural effusions. In the ED patient was given Lasix 40 mg once. Troponin continued to increase, on heparin drip, chest pain has resolved. Cardiology consulted. Echocardiogram showed LVEF 55%, mild to moderate right ventricular dilatation, moderate right atrial dilatation, trace to mild TR. Patient will be managed medically. No interventions. Follow-up with cardiology. Right upper quadrant ultrasound shows hepatic steatosis, no right upper quadrant pain. On room air at the time of discharge, no respiratory complaints Patient seen and examined at bedside. Vital signs reviewed and stable. General: nontoxic, no distress, appears at stated age Derm: warm, dry Head: atraumatic, normocephalic, symmetric Eyes: EOMI, no lid lag, anicteric sclera Mouth: no lip lesion, mucus membranes moist Cardiovascular: S1S2 reg, no murmur Lungs: CTA bilateral, no rhonchi, no rales , no accessory muscle use Abdominal: soft, nontender to palpation, no guarding, no appreciable organomegaly Ext: no gross muscle atrophy, no edema, no contractures Neuro: CN II-XI grossly intact, no focal neuro deficits Psych: Alert, oriented, appropriate affect A total of 33 minutes of time were spent preparing this complex discharge summary. Patient was discharged on 09/02/22 at 9:52. Patient Condition at Discharge: Stable Plan - Discharge Summary New Discharge Prescriptions: New Metoprolol Tartrate [Lopressor] 25 mg PO BID #90 tab Aspirin 81 mg PO DAILY #90 tab Isosorbide Mononitrate ER [Imdur] 30 mg PO DAILY #90 tab Ezetimibe [Zetia] 10 mg PO DAILY #90 tab Continue Ascorbic Acid [Vitamin C] 500 mg PO DAILY Rosuvastatin Calcium [Crestor] 40 mg PO DAILY L.acidoph,Paracasei, B.lactis [Probiotic] 1 cap PO DAILY Discontinued atenoloL 12.5 mg PO DAILY Niacin 500 mg PO DAILY [place]-3 Fatty Acids/Fish Oil [Fish Oil 1,000 mg Softgel] 1 cap PO DAILY Discharge Medication List Ascorbic Acid [Vitamin C] 500 mg PO DAILY 02/27/19 [History] L.acidoph,Paracasei, B.lactis [Probiotic] 1 cap PO DAILY 08/30/22 [History] Rosuvastatin Calcium [Crestor] 40 mg PO DAILY 08/30/22 [History] Aspirin 81 mg PO DAILY #90 tab 09/02/22 [Rx] Ezetimibe [Zetia] 10 mg PO DAILY #90 tab 09/02/22 [Rx] Isosorbide Mononitrate ER [Imdur] 30 mg PO DAILY #90 tab 09/02/22 [Rx] Metoprolol Tartrate [Lopressor] 25 mg PO BID #90 tab 09/02/22 [Rx] Follow up Appointment(s)/Referral(s): Joseph Rodriguez MD [STAFF PHYSICIAN] - 1 Week (OFFICE WILL CALL YOU WITH DATE AND TIME) Jin Espinoza DO [Primary Care Provider] - 09/08/22 9:20 am Patient Instructions/Handouts: Heart Attack (DC), Heart Healthy Diet (DC) Discharge Disposition: HOME SELF-CARE
== END 2022-09-02 12:45 | disposition home or self-care (01) | DRG 282 ==
LOC: EC 13:53 → 6NMEDSUR 15:41 → 3SCARD 21:33 → OBSVTOIN 08-31 12:03
PROVIDERS: ADMIT Internal Medicine; ATTEND Internal Medicine
DX: I21.4 Non-ST elevation (NSTEMI) myocardial infarction (principal); K76.0 Fatty (change of) liver, not elsewhere classified; J67.0 Farmer's lung; I44.0 Atrioventricular block, first degree; I25.10 Atherosclerotic heart disease of native coronary artery without angina pectoris; I10 Essential (primary) hypertension; F03.90 Unspecified dementia, unspecified severity, without behavioral disturbance, psychotic disturbance, mood disturbance, and anxiety; E78.5 Hyperlipidemia, unspecified; E80.6 Other disorders of bilirubin metabolism; M54.50 Low back pain, unspecified; M25.551 Pain in right hip; Z95.1 Presence of aortocoronary bypass graft; Z79.899 Other long term (current) drug therapy; Z79.82 Long term (current) use of aspirin; I25.2 Old myocardial infarction; Z87.828 Personal history of other (healed) physical injury and trauma
CPT/HCPCS: 36415; 71046; 76705; 80053; 80061; 83690; 83735; 83880; 84484; 85025; 85610; 85730; 93005; 93306; 96372; 96374; 96375; 99285

== ENCOUNTER 2023-07-28 10:34 | Emergency (ER) | payer MEDICARE ==
[2023-07-28 10:54] VITALS: TEMP 97.7
[2023-07-28 11:37] LABS: Basophils # (A) 0.1 k/uL (0-0.2); Basophils % (A) 1 %; Eosinophils # (A) 0.1 k/uL (0-0.7); Eosinophils % (A) 1 %; HGB 15.4 gm/dL (13.0-17.5); Lymphocytes # (A) 1.7 k/uL (1.0-4.8); Lymphocytes % (A) 18 %; MCH 32.7 pg (25.0-35.0); MCHC 34.3 g/dL (31.0-37.0); MCV 95.6 fL (80.0-100.0); Mean Platelet Volume 7.7; Monocytes # (A) 0.9 k/uL (0-1.0); Monocytes % (A) 9 %; Neutrophils # (A) 6.6 k/uL (1.3-7.7); Neutrophils % (A) 70 %; Platelet Count 188 k/uL (150-450); RBC 4.71 m/uL (4.30-5.90); RDW 12.7 % (11.5-15.5); WBC 9.5 k/uL (3.8-10.6)
--- NOTE | 2023-07-28 11:49 | XR ---
EXAMINATION TYPE: XR chest 1V portable DATE OF EXAM: 07/28/2023 Comparison: 08/30/2022 Clinical History: 88-year-old male fall, pain Findings: Median sternotomy wires are present with postoperative clips. Heart borderline to mildly enlarged. Mi ld interstitial prominence. No margret consolidation or pleural effusion. Impression: Borderline to mild cardiomegaly. Interstitial prominence. Correlate to exclude mild pulmonary vascula r congestion.
[2023-07-28] MEDS: SODIUM CHLORIDE 0.9% 1,000 ML IV ONE (11:50)
--- NOTE | 2023-07-28 11:52 | XR ---
EXAMINATION TYPE: XR shoulder limited RT DATE OF EXAM: 07/28/2023 COMPARISON: NONE HISTORY: 88-year-old male with pain after fall TECHNIQUE: Single AP internal rotation view FINDINGS: Moderate degenerative change AC joint. Mild soft tissue swelling overlying the shoulder. Suggestion o f spurring at the glenohumeral joint but this single AP internal rotation view is limited. Possible s ubtle lucencies projecting at the humeral head. IMPRESSION: Very limited single AP internal rotation view. Underlying AC and glenohumeral joint osteoarthrosis. U nable to exclude a nondisplaced humeral head fracture.
[2023-07-28 11:54] LABS: ALT 51 U/L (4-49); AST 65 U/L (17-59); African American GFR (CKD) 73 (>60 ml/min/1.73 sqM); Albumin 3.6 g/dL (3.5-5.0); Alkaline Phosphatase 65 U/L (38-126); Anion Gap 5 mmol/L; Blood Urea Nitrogen 13 mg/dL (9-20); Carbon Dioxide 26 mmol/L (22-30); Chloride 109 mmol/L (98-107); Glucose 88 mg/dL (74-99); Non-African American GFR(CKD) 63 (>60 ml/min/1.73 sqM); Potassium 4.3 mmol/L (3.5-5.1); Sodium 140 mmol/L (137-145); Total Bilirubin 2.6 mg/dL (0.2-1.3); Total Protein 6.1 g/dL (6.3-8.2)
[2023-07-28 11:55] LABS: Partial Thromboplastin Time 25.2 sec (22.0-30.0)
--- NOTE | 2023-07-28 12:02 | CT ---
EXAMINATION TYPE: CT brain taye rubalcava DATE OF EXAM: 07/28/2023 COMPARISON: 02/20/2021 HISTORY: fall, on blood thinners CT DLP: 1082.[address] of the brain was performed. The ventricles, basal cisterns and sulci overlying the cerebral convexities demonstrate mild enlargem ent. There is no evidence for intracranial hemorrhage or sulcal effacement. There is decreased attenuatio n about the periventricular white matter and deep white matter of both cerebral hemispheres, compatib le with chronic small vessel ischemia. No mass effects are seen. If symptoms persist consider MRI. Osseous calvarium is intact. IMPRESSION: 1. Age related atrophic and chronic small vessel ischemic change without acute intracranial process seen at this time. CT Cervical Spine: Unenhanced CT of the cervical spine was performed with bone and soft tissue window settings submitted . Coronal and sagittal reconstruction is obtained. There is normal alignment and prevertebral soft tissues. No evidence for acute cervical fracture . Scattered degenerative disc disease and spondylosis. Biapical scarring. IMPRESSION: 1. No evidence for acute fracture or subluxation of the cervical spine.
--- NOTE | 2023-07-28 12:07 | CT ---
EXAMINATION TYPE: CT facial bones wo con DATE OF EXAM: 07/28/2023 COMPARISON: None HISTORY: fall, on blood thinners CT DLP: 1082.[address] of the facial bones was performed in the axial and coronal planes. Bone and soft tissu e window settings are submitted. There is periorbital soft tissue swelling noted. I do not see evidence for displaced facial bone fracture or depressed facial bone fracture. The globes are intact. Complete opacification right maxillary sinus is felt to be related to chronic severe sinusitis IMPRESSION: 1. No evidence for depressed or displaced facial bone fracture.
[2023-07-28 12:08] LABS: Appearance,Urine Clear (Clear); Bilirubin,Urine Negative (Negative); Color,Urine Light Yellow; Glucose,Urine (UA) Negative (Negative); Ketones,Urine Negative (Negative); PH, Urine 6.5 (5.0-8.0); Protein,Urine Negative (Negative); Specific Gravity,Urine 1.021 (1.001-1.035)
[2023-07-28 12:09] LABS: Blood,Urine Negative (Negative); Leukocyte Esterase,Urine Negative (Negative); Nitrite,Urine Negative (Negative); Urobilinogen,Urine <2.0 mg/dL (<2.0)
--- NOTE | 2023-07-28 14:17 | US ---
EXAMINATION TYPE: US venous doppler duplex LE RT DATE OF EXAM: 07/28/2023 12:13 PM COMPARISON: NONE CLINICAL INDICATION: Male, 88 years old with history of edema, eval for DVT; Recent fall. No redness . SIDE PERFORMED: Right TECHNIQUE: The lower extremity deep venous system is examined utilizing real time linear array sonog ailyn with graded compression, doppler sonography and color-flow sonography. VESSELS IMAGED: Common Femoral Vein Deep Femoral Vein Greater Saphenous Vein * Femoral Vein Popliteal Vein Small Saphenous Vein * Proximal Calf Veins Posterior tibial veins (* superficial vessels) Right Leg: Negative for DVT IMPRESSION: No evidence for DVT within the right lower extremity.
--- NOTE | 2023-07-28 14:42 | XR ---
EXAMINATION TYPE: XR shoulder complete 3 views RT DATE OF EXAM: 07/28/2023 Comparison: 07/28/2023 Clinical History: 88-year-old male pain after fall Findings: There is moderate degenerative change of the AC joint with a marginal spurring and capsular hypertrop hy. There is moderate degenerative change of the glenoid humeral joint with joint space narrowing and marginal spurring. Subtle sclerosis of the greater tuberosity suggest chronic rotator cuff tendinopa thy. Mild simultaneous soft tissue swelling along the shoulder. 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 No acute osseous abnormality seen.
--- NOTE | 2023-07-28 14:52 | ED ---
General Adult HPI - General Chief complaint: Fall Stated complaint: Fall, blood thinners Time Seen by Provider: 07/28/23 11:01 Source: patient, family, RN notes reviewed, old records reviewed Mode of arrival: ambulatory Limitations: no limitations - History of Present Illness Initial comments: Is a 88-year-old male who presents emergency department after a fall yesterday. Fall occurred over 12 hours ago patient is on Plavix. Denies loss of consciousness. States that he somehow tripped while walking and fell forward onto his right shoulder and his face. He has a contusion of the right side of his face. After they called PCP, sent here for CT of the brain with the patient being on Plavix. Patient has no other acute complaints at this time. Denies any leg pain, chest pain, abdominal pain, nausea, vomiting. Denies any back pain. Is having some right lower extremity swelling which is somewhat chronic for the patient. is concerned he may be mildly worse at this time. Presents for further evaluation. Patient otherwise is acting normally. No LOC. - Related Data Home Medications Medication Instructions Recorded Confirmed Ascorbic Acid [Vitamin C] 500 mg PO DAILY 02/27/19 08/30/22 L.acidoph,Paracasei, B.lactis 1 cap PO DAILY 08/30/22 08/30/22 [Probiotic] Rosuvastatin Calcium [Crestor] 40 mg PO DAILY 08/30/22 08/30/22 Previous Rx's Medication Instructions Recorded Aspirin 81 mg PO DAILY #90 tab 09/02/22 Ezetimibe [Zetia] 10 mg PO DAILY #90 tab 09/02/22 Isosorbide Mononitrate ER [Imdur] 30 mg PO DAILY #90 tab 09/02/22 Metoprolol Tartrate [Lopressor] 25 mg PO BID #90 tab 09/02/22 Allergies Allergy/AdvReac Type Severity Reaction Status Date / Time No Known Allergies Allergy Verified 07/28/23 10:42 Review of Systems ROS Statement: Those systems with pertinent positive or pertinent negative responses have been documented in the HPI. Review of Systems: CONST: Denies fever EYES: Denies blurry vision ENT: Denies nasal congestion C/V: Denies Chest pain RESP: Denies shortness of breath GI: Denies abdominal pain : Denies dysuria SKIN: Denies rash. MSK: Endorses right facial pain, right shoulder pain. NEURO: Denies headache ROS Other: All systems not noted in ROS Statement are negative. 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, head injury one year ago and still gets occasional headaches, low back pain/R hip pain/limited ROM, L knee injury and it will buckle so pt wears a knee brace, recent bilateral pedal edema-pt had recent ultrasound but has not gotten the results plus edema went away, Last Myocardial Infarction Date:: 2001 History of Any Multi-Drug Resistant Organisms: None Reported Past Surgical History: Cholecystectomy, Coronary Bypass/CABG, Heart Catheterization Additional Past Surgical History / Comment(s): 2001 CABG 4 vessel, R leg/foot clips removed, lumbar epidural injections, LP Additional Past Anesthesia/Blood Transfusion Reaction / Comment(s): Pt gets "loopy" with anesthesia and has had longer hospital stays d/t this. Past Psychological History: No Psychological Hx Reported Smoking Status: Never smoker Past Alcohol Use History: None Reported Past Drug Use History: None Reported - Past Family History Father History Unknown: Yes Additional Family Medical History / Comment(s): Father commited suicide. Mother Family Medical History: Dementia General Exam - General Exam Comments Initial Comments: General: Appears in no acute distress. HEAD: Bruising over the right face. Negative Pham sign. Negative raccoon eyes. EYES: PERRLA, EOMI, conjunctiva normal, no discharge. Pupils are 3 mm and equal bilaterally. ENT: Hearing grossly intact, normal oropharynx. RESPIRATORY: Clear breath sounds bilaterally. No wheezes, rales, or rhonchi. C/V: Regular rate and rhythm. S1 and S2 auscultated, no edema, peripheral pulses 2+ and intact throughout ABD: Abd is soft, nontender, nondistended EXT: Normal range of motion, no obvious deformity. No midline spinal tenderness to palpation. Mild right shoulder tenderness to palpation. Pelvis is stable. SKIN: No rashes or lesions observed on exposed skin. NEURO: Alert and oriented x 4. No focal deficits. ECS 15. Limitations: no limitations Course Vital Signs 07/28/23 07/28/23 07/28/23 10:37 10:51 11:00 Temperature 97.7 F Pulse Rate 73 70 67 Respiratory 18 20 20 Rate Blood Pressure 128/71 109/68 O2 Sat by Pulse 94 L 95 95 Oximetry 07/28/23 07/28/23 07/28/23 11:30 12:31 13:00 Temperature Pulse Rate 68 65 63 Respiratory 18 20 18 Rate Blood Pressure 109/64 113/73 106/61 O2 Sat by Pulse 95 94 L 94 L Oximetry 07/28/23 07/28/23 14:00 14:30 Temperature Pulse Rate 72 68 Respiratory 18 19 Rate Blood Pressure 104/64 106/61 O2 Sat by Pulse 95 94 L Oximetry Medical Decision Making - Medical Decision Making Was pt. sent in by a medical professional or institution (, PA, FLEET DIRECTOR, urgent c are, hospital, or longterm...) When possible be specific @ -No Did you speak to anyone other than the patient for history (EMS, parent, family, police, friend...)? What history was obtained from this source @ -No Did you review nursing and triage notes (agree or disagree)? Why? @ -I reviewed and agree with nursing and triage notes Were old charts reviewed (outside hosp., previous admission, EMS record, old EKG, old radiological studies, urgent care reports/EKG's, longterm records)? Report findings @ -No old charts were reviewed Differential Diagnosis (chest pain, altered mental status, abdominal pain women, abdominal pain men, vaginal bleeding, weakness, fever, dyspnea, syncope, headache, dizziness, GI bleed, back pain, seizure, CVA, palpatations, mental health, musculoskeletal)? @ -Differential Musculoskeletal Muscular strain, contusion, ligament sprain, fracture, arthritis, septic arthritis, bursitis, cellulitis, muscle spasm, nerve compression, DVT, arterial occlusion, herpes zoster, electrolyte abnormality, tumor.... This is not meant to be in all inclusive list EKG interpreted by me (3pts min.). @ -None done X-rays interpreted by me (1pt min.). @ -Initial right shoulder x-ray indeterminate of fracture or injury. Complete right shoulder x-ray unremarkable for any obvious traumatic injury. Chronic degenerative changes present. Chest x-ray unremarkable. CT interpreted by me (1pt min.). @ -CT brain, C-spine negative for any obvious traumatic injury. Face CT negative for any obvious traumatic injury. U/S interpreted by me (1pt. min.). @ -Venous duplex negative for any obvious DVT in the right lower extremity. What testing was considered but not performed or refused? (CT, X-rays, U/S, labs)? Why? @ -None What meds were considered but not given or refused? Why? @ -None Did you discuss the management of the patient with other professionals (pr ofessionals i.e. , PA, FLEET DIRECTOR, lab, RT, psych nurse, social work lecturer, corporate lawyer, teacher, police liaison officer, cyanide case hardener)? Give summary @ -No Was smoking cessation discussed for >3mins.? @ -No Was critical care preformed (if so, how long)? @ -No Were there social determinants of health that impacted care today? How? (Homelessness, low income, unemployed, alcoholism, drug addiction, transportation, low edu. Level, literacy, decrease access to med. care, nursing home, rehab)? @ -No Was there de-escalation of care discussed even if they declined (Discuss DNR or withdrawal of care, Hospice)? DNR status @ -No What co-morbidities impacted this encounter? (DM, HTN, Smoking, COPD, CAD, Cancer, CVA, ARF, Chemo, Hep., AIDS, mental health diagnosis, sleep apnea, morbid obesity)? @ -None Was patient admitted / discharged? Hospital course, mention meds given and route, prescriptions, significant lab abnormalities, going to OR and other pertinent info. @ -Based on the patient's presentation and physical exam, presents emergency department complaining of a fall over 12 hours ago. Is on Plavix. Does not me et criteria for trauma activation. No LOC. We will obtain CT brain, facial bones, C-spine as well as x-rays of the chest and right shoulder. Patient agreement this plan. Also a DVT ultrasound of the right lower extremity. Patient's labs are unremarkable. Vital signs are within acceptable limits. Bilirubin is slightly elevated but this is chronic for the patient. Imaging all negative for any obvious traumatic injury. We did have to obtain a repeat right shoulder x-ray as the first 1 was inconclusive for possible injury. Second complete x-ray was conclusive that there is no obvious acute traumatic injury. After the patient. He will be discharged home at this time. Family in agreem ent this plan. Answered all questions that they had. I instructed the patient to follow up with their PCP in the next 1-3 days. I explained that the patient should return to the emergency department if they experience any worsening symptoms. Strict return precautions were discussed with the patient. The patient expressed understanding of these instructions. I answered all questions that the patient had. The patient was discharged home in good condition with their prescriptions and follow up information. Undiagnosed new problem with uncertain prognosis? @ -No Drug Therapy requiring intensive monitoring for toxicity (Heparin, Nitro, Insulin, Cardizem)? @ -No Were any procedures done? @ -No Diagnosis/symptom? @ -Fall, forehead contusion, muscle strain Acute, or Chronic, or Acute on Chronic? @ -Acute Uncomplicated (without systemic symptoms) or Complicated (systemic symptoms)? @ -Uncomplicated Side effects of treatment? @ -No Exacerbation, Progression, or Severe Exacerbation? @ -No Poses a threat to life or bodily function? How? (Chest pain, USA, NV, pneumonia, PE, COPD, DKA, ARF, appy, cholecystitis, CVA, Diverticulitis, Homicidal, Suicidal, threat to staff... and all critical care pts) @ -Unlikely - Lab Data Result diagrams: 07/28/23 11:20 07/28/23 11:20 Lab Results 07/28/23 07/28/23 07/28/23 Range/Units 11:20 11:20 11:20 WBC 9.5 (3.8-10.6) k/uL RBC 4.71 (4.30-5.90) m/uL Hgb 15.4 (13.0-17.5) gm/dL Hct 45.0 (39.0-53.0) % MCV 95.6 (80.0-100.0) fL MCH 32.7 (25.0-35.0) pg MCHC 34.3 (31.0-37.0) g/dL RDW 12.7 (11.5-15.5) % Plt Count 188 (150-450) k/uL MPV 7.7 Neutrophils % 70 % Lymphocytes % 18 % Monocytes % 9 % Eosinophils % 1 % Basophils % 1 % Neutrophils # 6.6 (1.3-7.7) k/uL Lymphocytes # 1.7 (1.0-4.8) k/uL Monocytes # 0.9 (0-1.0) k/uL Eosinophils # 0.1 (0-0.7) k/uL Basophils # 0.1 (0-0.2) k/uL PT 11.0 (10.0-12.5) sec INR 1.0 (<1.2) APTT 25.2 (22.0-30.0) sec Sodium 140 (137-145) mmol/L Potassium 4.3 (3.5-5.1) mmol/L Chloride 109 H (98-107) mmol/L Carbon Dioxide 26 (22-30) mmol/L Anion Gap 5 mmol/L BUN 13 (9-20) mg/dL Creatinine 1.06 (0.66-1.25) mg/dL Est GFR (CKD-EPI)AfAm 73 (>60 ml/min/1.73 sqM) Est GFR (CKD-EPI)NonAf 63 (>60 ml/min/1.73 sqM) Glucose 88 (74-99) mg/dL Calcium 9.0 (8.4-10.2) mg/dL Total Bilirubin 2.6 H (0.2-1.3) mg/dL AST 65 H (17-59) U/L ALT 51 H (4-49) U/L Alkaline Phosphatase 65 (38-126) U/L Total Protein 6.1 L (6.3-8.2) g/dL Albumin 3.6 (3.5-5.0) g/dL Urine Color Urine Appearance (Clear) Urine pH (5.0-8.0) Ur Specific Meredith (1.001-1.035) Urine Protein (Negative) Urine Glucose (UA) (Negative) Urine Ketones (Negative) Urine Blood (Negative) Urine Nitrite (Negative) Urine Bilirubin (Negative) Urine Urobilinogen (<2.0) mg/dL Ur Leukocyte Esterase (Negative) 07/28/23 Range/Units 11:20 WBC (3.8-10.6) k/uL RBC (4.30-5.90) m/uL Hgb (13.0-17.5) gm/dL Hct (39.0-53.0) % MCV (80.0-100.0) fL MCH (25.0-35.0) pg MCHC (31.0-37.0) g/dL RDW (11.5-15.5) % Plt Count (150-450) k/uL MPV Neutrophils % % Lymphocytes % % Monocytes % % Eosinophils % % Basophils % % Neutrophils # (1.3-7.7) k/uL Lymphocytes # (1.0-4.8) k/uL Monocytes # (0-1.0) k/uL Eosinophils # (0-0.7) k/uL Basophils # (0-0.2) k/uL PT (10.0-12.5) sec INR (<1.2) APTT (22.0-30.0) sec Sodium (137-145) mmol/L Potassium (3.5-5.1) mmol/L Chloride (98-107) mmol/L Carbon Dioxide (22-30) mmol/L Anion Gap mmol/L BUN (9-20) mg/dL Creatinine (0.66-1.25) mg/dL Est GFR (CKD-EPI)AfAm (>60 ml/min/1.73 sqM) Est GFR (CKD-EPI)NonAf (>60 ml/min/1.73 sqM) Glucose (74-99) mg/dL Calcium (8.4-10.2) mg/dL Total Bilirubin (0.2-1.3) mg/dL AST (17-59) U/L ALT (4-49) U/L Alkaline Phosphatase (38-126) U/L Total Protein (6.3-8.2) g/dL Albumin (3.5-5.0) g/dL Urine Color Light Yellow Urine Appearance Clear (Clear) Urine pH 6.5 (5.0-8.0) Ur Specific Meredith 1.021 (1.001-1.035) Urine Protein Negative (Negative) Urine Glucose (UA) Negative (Negative) Urine Ketones Negative (Negative) Urine Blood Negative (Negative) Urine Nitrite Negative (Negative) Urine Bilirubin Negative (Negative) Urine Urobilinogen <2.0 (<2.0) mg/dL Ur Leukocyte Esterase Negative (Negative) Disposition Clinical Impression: Fall, Muscle strain, Facial contusion Disposition: HOME SELF-CARE Condition: Good Instructions (If sedation given, give patient instructions): Fall Prevention for Older Adults (ED) Is patient prescribed a controlled substance at d/c from ED?: No Referrals: McPhilimy,Jin, DO [Primary Care Provider] - 1-2 days Time of Disposition: 14:51
[2023-07-28 15:23] VITALS: BP 106/61; PULSE 68; RESP 19
== END 2023-07-28 15:08 | disposition home or self-care (01) ==
LOC: EC 10:34
DX: S46.911A Strain of unspecified muscle, fascia and tendon at shoulder and upper arm level, right arm, initial encounter (principal); S00.83XA Contusion of other part of head, initial encounter; W01.0XXA Fall on same level from slipping, tripping and stumbling without subsequent striking against object, initial encounter; Y93.01 Activity, walking, marching and hiking
CPT/HCPCS: 36415; 70450; 70486; 71045; 72125; 80053; 81003; 85025; 85610; 85730; 96360; 99284